=== PATIENT | female | born 1960 | race Caucasian/White ===

== ENCOUNTER 2019-12-31 16:57 | Inpatient (IN) | payer OTHER ==
[~2019-12-31] VITALS: Ht 162.6 cm; Wt 130.2 kg
[2019-12-31 16:58] VITALS: BP 184/91
[2019-12-31 17:37] LABS: URINE BILIRUBIN NEGATIVE (Negative); URINE BLOOD 1+ (Negative); URINE CLARITY SL CLOUDY; URINE COLOR YELLOW; URINE GLUCOSE-RANDOM 3+ (Negative); URINE KETONES NEGATIVE (Negative); URINE LEUKOCYTES-REFLEX NEGATIVE (Negative); URINE NITRITE-REFLEX NEGATIVE (Negative); URINE PROTEIN 3+ (Negative); URINE SPECIFIC GRAVITY >= 1.030 (1.005-1.030); URINE UROBILINOGEN 0.2 E.U./dl (0.2-1.0)
[2019-12-31 17:44] LABS: ABSOLUTE BASOPHILS 0.1 thou/uL (0.0-0.2); ABSOLUTE EOSINOPHILS 0.2 thou/uL (0.0-0.7); ABSOLUTE LYMPHOCYTES 3.5 thou/uL (0.8-5.3); ABSOLUTE MONOCYTES 0.6 thou/uL (0.0-1.2); ABSOLUTE NEUTROPHILS 9.3 thou/uL (1.6-8.1); BASOPHILS 0.7 %; EOSINOPHILS 1.3 %; HEMOGLOBIN 13.3 gm/dL (12.0-15.0); LYMPHOCYTES 25.4 %; MCHC 33.1 g/dL (28.0-37.0); MCV 81.6 fL (80.0-100.0); MONOCYTES 4.7 %; MPV 8.9 fl. (7.2-11.1); NUCLEATED RBCS 0 /100WBC; PLATELET COUNT* 338 thou/uL (150-400); POLYS 67.9 %; RBC 4.91 mil/uL (4.20-5.00); RDW-CV 15.7 % (10.5-14.5); WBC 13.8 thou/uL (4.0-11.0)
[2019-12-31 17:47] LABS: BACTERIA-REFLEX >30 Many /HPF (None Seen); CASTS None Seen /LPF (None Seen); CRYSTALS None Seen /LPF (None Seen); MUCUS 0-3 Light strn/LPF (None Seen); SQUAMOUS 0-3 Few /LPF (0-3); URINE RBC 0-2 Rare /HPF (0-2); URINE WBC-REFLEX >25 Many /HPF (0-5); WBC CLUMPS Moderate (None Seen)
[2019-12-31 17:57] LABS: CALCIUM 9.2 mg/dL (8.5-10.1); CREATININE 1.4 mg/dL (0.6-1.3); POTASSIUM 4.7 mmol/L (3.5-5.1)
[2019-12-31 17:59] LABS: APTT 26.6 Seconds (25.0-31.3); PROTIME 10.1 Seconds (9.20-11.50)
[2019-12-31 18:01] LABS: INFLUENZA A ANTIGEN Negative (Negative); INFLUENZA B ANTIGEN Negative (Negative)
[2019-12-31 18:07] LABS: ALBUMIN 3.2 g/dL (3.4-5.0); TOTAL BILIRUBIN 0.2 mg/dL (<0.1-1.0); TOTAL PROTEIN 8.4 g/dL (6.4-8.2)
[2019-12-31 20:05] VITALS: BP 166/122
[2019-12-31 20:08] VITALS: BP 147/79
[2019-12-31 21:43] LABS: MAGNESIUM 1.8 mg/dL (1.8-2.4); PHOSPHORUS* 4.8 mg/dL (2.5-4.9)
[2019-12-31 23:14] LABS: AMP/METHAMP Negative (Negative); BARBITURATES Negative (Negative); BENZODIAZEPINES Negative (Negative); COCAINE Negative (Negative); METHADONE Negative (Negative); OPIATES Negative (Negative); PCP Negative (Negative); THC Negative (Negative)
[2019-12-31 23:44] VITALS: BP 138/68
[2020-01-01 00:42] LABS: BE -5.6 mmol/L (-2 to +3); PCO2 41.3 mmHg (35.0-45.0)
[2020-01-01 00:48] LABS: PO2 144.1 mmHg (75.0-100.0)
[2020-01-01 04:26] VITALS: BP 129/63
[2020-01-01 04:47] LABS: HEMATOCRIT 35.7 % (37.0-47.0); HEMOGLOBIN 12.1 gm/dL (12.0-15.0); MCH 27.2 pg (26.0-34.0); MCHC 33.9 g/dL (28.0-37.0); MPV 8.2 fl. (7.2-11.1); RBC 4.46 mil/uL (4.20-5.00); RDW-CV 15.4 % (10.5-14.5)
[2020-01-01 05:03] LABS: ALBUMIN 2.7 g/dL (3.4-5.0); CALCIUM 9.3 mg/dL (8.5-10.1); CREATININE 1.6 mg/dL (0.6-1.3); MAGNESIUM 1.8 mg/dL (1.8-2.4); POTASSIUM 5.3 mmol/L (3.5-5.1); TOTAL BILIRUBIN 0.3 mg/dL (<0.1-1.0); TOTAL PROTEIN 7.4 g/dL (6.4-8.2)
[2020-01-01] MEDS ORDERED: NOVOLIN N100 UNIT/3 SUBQ ×2 (05:07→05:26)
[2020-01-01 05:13] LABS: TROPONIN-I LEVEL 22.55 ng/mL (<0.06)
[2020-01-01] MEDS ORDERED: HUMULIN R100 UNIT/1 SUBQ (05:25)
[2020-01-01] MEDS ORDERED: METFORMIN HCL500 M3 PO (05:26)
[2020-01-01] MEDS ORDERED: LISINOPRIL2.5 MG PO (05:27)
[2020-01-01] MEDS ORDERED: SIMVASTATIN80 MG PO (05:27)
[2020-01-01 06:05] LABS: CHOLESTEROL 359 mg/dL (<200); HDL CHOLESTEROL 48 mg/dL (>40); LDL CHOLESTEROL 247 mg/dL (<100); TC:HDL 7.5 Ratio (Not establshd); TRIGLYCERIDE 320 mg/dL (<150); VLDL 64 mg/dL (<40)
[2020-01-01 06:07] LABS: SERUM ASSESSMENT Slight Lipemia
[2020-01-01 08:00] VITALS: BP 112/49
[2020-01-01 11:00] VITALS: BP 120/65
[2020-01-01 15:03] VITALS: BP 123/44
[2020-01-01 17:00] VITALS: BP 112/49
[2020-01-01 20:10] VITALS: BP 108/51
[2020-01-02 00:55] VITALS: BP 112/47
[2020-01-02 03:08] LABS: GLYCOHEMOGLOBIN (HGB A1C) 10.4 % (4.8-5.6)
[2020-01-02 05:30] LABS: HEMATOCRIT 34.6 % (37.0-47.0); HEMOGLOBIN 11.6 gm/dL (12.0-15.0); MCH 26.9 pg (26.0-34.0); MCHC 33.6 g/dL (28.0-37.0); MCV 80.1 fL (80.0-100.0); MPV 8.6 fl. (7.2-11.1); RBC 4.32 mil/uL (4.20-5.00); RDW-CV 15.5 % (10.5-14.5); WBC 15.5 thou/uL (4.0-11.0)
[2020-01-02 05:45] LABS: CREATININE 2.1 mg/dL (0.6-1.3); POTASSIUM 4.9 mmol/L (3.5-5.1)
[2020-01-02 11:30] VITALS: BP 124/55
--- NOTE | 2020-01-02 11:58 | 2DMMODE ---
[place] [address] 2 D/M-MODE ECHOCARDIOGRAM Name: CHARLENECHRISS R Room: [address] IN M.R.#: [id number] Admission: 12/31/19 Attend Phys: Roberto bateman Sa Discharge: Date of : 58 Date of Service: 01/02/20 1157 Report #: [id number] THIS REPORT FOR: cc: Physician not on staff Physician not on staff Deniz Wallace MD [facility] ~ APPROVED REPORT Study performed: 01/02/2020 10:22:52 EXAM: Comprehensive 2D, Doppler, and color-flow Echocardiogram Patient Location: In-Patient Room #: [facility] Status: routine BSA: 2.30 HR: 77 bpm BP: 130/55 mmHg Rhythm: NSR Other Information Study Quality: Fair Indications Dyspnea 2D Dimensions IVSd: 15.14 (7-11mm) LVOT Diam: 21.96 (18-24mm) LVDd: 64.66 mm PWd: 11.90 (7-11mm) Ascending Ao: 33.40 (22-36mm) LVDs: 49.38 (25-40mm) Aortic Root: 31.81 mm Volumes Left Atrial Volume (Systole) LA ESV Index: 25.20 mL/m2 Aortic Valve AoV Peak Jonnie.: 1.77 m/s AO Peak Gr.: 12.56 mmHg LVOT Max P.24 mmHg AO Mean Gr.: 7.89 mmHg LVOT Mean P.61 mmHg LVOT Max V: 0.90 m/s AO V2 VTI: 35.73 cm LVOT Mean V: 0.58 m/s TYLER (VTI): 2.14 cm2 LVOT V1 VTI: 20.20 [place] [address] 2 D/M-MODE ECHOCARDIOGRAM Name: CHRISS CHANG Room: [address] IN M.R.#: [id number] Admission: 12/31/19 Attend Phys: Roberto bateman Sa Discharge: Date of : 58 Date of Service: 01/02/20 1157 Report #: [id number] Mitral Valve E/A Ratio: 1.13 MV Decel. Time: 234.13 ms MV E Max Jonnie.: 1.15 m/s MV PHT: 67.90 ms MVA (PHT): 3.24 cm2 TDI E/Lateral E': 19.17 E/Medial E': 19.17 Medial E' Jonnie.: 0.06 m/s Lateral E' Jonnie.: 0.06 m/s Pulmonary Valve PV Peak Jonnie.: 0.99 m/s PV Peak Gr.: 3.92 mmHg Left Ventricle Left ventricle is moderately dilated. There is global hypokinesis of the left ventricle. Mild concentric left ventricular hypertrophy. Left ventricular systolic function is mildly decreased. LVEF is 30-35%. Right Ventricle The right ventricle is normal size. The right ventricular systolic function is normal. Atria The left atrium size is normal. The right atrium size is normal. Aortic Valve Mild aortic valve sclerosis. No aortic regurgitation is present. There is no aortic valvular stenosis. Mitral Valve There is mitral annular calcification. There is no mitral valve regurgitation noted. No evidence of mitral valve stenosis. Tricuspid Valve The tricuspid valve is normal in structure. There is no tricuspid valve regurgitation noted. Pulmonic Valve The pulmonary valve is normal in structure. There is no pulmonic valvular [place] [address] 2 D/M-MODE ECHOCARDIOGRAM Name: CHRISS CHANG Room: [address] IN .R.#: [id number] Admission: 12/31/19 Attend Phys: Roberto bateman Sa Discharge: Date of : 58 Date of Service: 01/02/20 1157 Report #: [id number] The aortic root is normal in size. IVC is normal in size and collapses >50% with inspiration. Pericardium There is no pericardial effusion. <Conclusion> Left ventricle is moderately dilated. Mild concentric left ventricular hypertrophy. LVEF is 30-35%. Mild aortic valve sclerosis. <ELECTRONICALLY SIGNED> By: Deniz Wallace MD, [facility] 01/02/20 1157 1157 1157 Deniz Wallace MD, [facility] /INF
--- NOTE | 2020-01-02 12:18 | CON ---
[address] [address] CONSULTATION Name: CHARLENECHRISS Cynthia Room: [address] IN M.R.#: [id number] Admission: 12/31/19 Attend Phys: Roberto Magana Discharge: Date of : 58 Report #: [id number] THIS REPORT FOR: //name// cc: Physician not on staff Physician not on staff ~ THIS REPORT FOR: //name// CC: Roberto Shay MD Physician staff DATE OF SERVICE: 01/01/2020 CARDIOLOGY CONSULTATION HISTORY OF PRESENT ILLNESS: The patient is a 59-year-old white female who I was asked to see in the hospital today because of elevated troponin. The patient denies previous history of heart disease. She is not very active at this time. She is 5 feet 4 inches. Previously weighed over 300 pounds. She has had history of PAD with previous stenting of her left lower extremity, both at [facility] and [place]. She eventually underwent left rhuca-jpj-popp amputation at [facility] the [place] in 2017 for a nonhealing ulcer. She currently has a prosthesis. She denies a history of heart disease. She actually saw Dr. Trinh in [place], [place] and had a nuclear stress test in the past that showed no significant coronary artery disease. She has never had a heart catheterization. She denies any history of exertional chest tightness. She notes that a couple of weeks ago, she had sneezing, and cough. She was put on antibiotics and cough syrup. However, recently she has been more short of breath. She finally came to the hospital yesterday and was admitted. She notes that her had the flu 2 weeks ago. She does have occasional chest pain when she takes deep breath, but denies radiating to her arms. Denied any swelling of her feet. Denied any palpitations or syncope. PAST MEDICAL HISTORY: She has had no other major surgical procedures. She has a history of diabetes, hypertension, and hyperlipidemia. MEDICATIONS: Include Zocor, lisinopril, and insulin. ALLERGIES: She has no known drug allergies. FAMILY HISTORY: Her grandmother had a heart attack. SOCIAL HISTORY: She is . She and her live in [place]. She quit smoking years ago. [place] [address] CONSULTATION Name: CHRISS CHANG Room: [address]#: [id number] Admission: 12/31/19 Attend Phys: Roberto Magana Discharge: Date of : 58 Report #: [id number] REVIEW OF SYSTEMS: She has had no history of strokes. She does have sleep apnea. No history of liver disease. She has had a kidney stone. No cancer. No psychiatric illness. No chronic skin condition. PHYSICAL EXAMINATION: GENERAL: Revealed an obese, middle-aged female lying in bed. She appeared in no distress. She did have a BiPAP in place. VITAL SIGNS: Show blood pressure 120/60, pulse is 80, she is afebrile. HEENT: She was anicteric. Conjunctivae are pink. Mucous membranes moist. NECK: Veins difficult to assess due to obesity. CHEST: Clear to auscultation. CARDIOVASCULAR: Regular rate and rhythm. ABDOMEN: Obese. EXTREMITIES: The right lower extremity had no edema. Dorsalis pedis pulse cannot be palpated. SKIN: Cool and dry. NEUROLOGIC: Nonfocal. DIAGNOSTIC DATA: Her ECG on admission yesterday showed a sinus rhythm, left axis and a left bundle branch block, occasional PVCs. Current ECG again shows a sinus rhythm, left axis deviation, evidence of previous anterior infarction. LABORATORY DATA: Sodium 136, potassium 5.3, BUN 36, creatinine 1.6, glucose 321. Liver function studies were normal. Albumin 2.7. Troponin elevated at 22. BNP 2220. Her cholesterol 359, triglyceride 320, HDL 48, LDL 247. Her white blood cell count is 11.0, hemoglobin 12.1. Her influenza screen was negative. Urinalysis 3+ protein, 3+ glucose, negative leukocytes, many bacteria. IMPRESSION AND RECOMMENDATIONS: 1. Type 2 myocardial infarction. I would not recommend cardiac catheterization at this time. I would obtain echocardiogram. I will start aspirin and Plavix. 2. Upper respiratory infection. The patient's chest x-ray on admission showed cardiomegaly, mild vascular congestion, no infiltrates. She actually had a CT scan of the chest using a PE protocol that showed no pulmonary embolus, mild vascular congestion, coronary artery atherosclerosis. Venous duplex scan of the legs was performed today showed no evidence of deep venous thrombosis. 3. Diabetes. The patient is on insulin. 4. Hyperlipidemia. The patient is on an EZEKIEL inhibitor. 5. Hyperlipidemia. The patient is on a statin drug. Because of her high triglycerides, I would consider adding fenofibrate. 6. Obesity. [address] [address] CONSULTATION Name: CHRISS CHANG Room: 231-P [facility] IN M.R.#: [id number] Admission: 12/31/19 Attend Phys: Roberto Magana Discharge: Date of : 58 Report #: [id number] 7. Sleep apnea. 8. Peripheral arterial disease with previous amputation. <ELECTRONICALLY SIGNED> By: Deniz Wallace MD, FACC 01/02/20 1218 0845 [id number] Wallace MD, FACC /nt
[2020-01-02 16:00] VITALS: BP 123/53
[2020-01-02 19:50] VITALS: BP 124/53
[2020-01-03] VITALS: BP 118/49
[2020-01-03 04:00] VITALS: BP 131/53
[2020-01-03 08:00] VITALS: BP 121/56
[2020-01-03 11:14] VITALS: BP 115/51
[2020-01-03 11:19] LABS: HEMATOCRIT 35.2 % (37.0-47.0); HEMOGLOBIN 11.8 gm/dL (12.0-15.0); MCH 26.9 pg (26.0-34.0); MCHC 33.5 g/dL (28.0-37.0); MCV 80.3 fL (80.0-100.0); MPV 8.7 fl. (7.2-11.1); NUCLEATED RBCS 0 /100WBC; PLATELET COUNT* 283 thou/uL (150-400); RBC 4.39 mil/uL (4.20-5.00); RDW-CV 15.2 % (10.5-14.5)
[2020-01-03 11:34] LABS: CALCIUM 8.7 mg/dL (8.5-10.1); CREATININE 2.2 mg/dL (0.6-1.3); POTASSIUM 4.5 mmol/L (3.5-5.1)
[2020-01-03 11:42] LABS: ABSOLUTE LYMPHOCYTES 1.1 thou/uL (0.8-5.3); ABSOLUTE MONOCYTES 0.4 thou/uL (0.0-1.2); ABSOLUTE NEUTROPHILS 10.6 thou/uL (1.6-8.1); ANISOCYTOSIS 1+; PLATELET ESTIMATE ADEQUATE; POIKILOCYTOSIS 1+
[2020-01-03 17:37] VITALS: BP 122/57
[2020-01-03 20:00] VITALS: BP 147/61
[2020-01-04] VITALS: BP 155/54
[2020-01-04 04:18] LABS: HEMATOCRIT 35.6 % (37.0-47.0); HEMOGLOBIN 11.9 gm/dL (12.0-15.0); MCH 26.8 pg (26.0-34.0); MCHC 33.4 g/dL (28.0-37.0); MCV 80.1 fL (80.0-100.0); MPV 8.6 fl. (7.2-11.1); RBC 4.44 mil/uL (4.20-5.00); RDW-CV 15.5 % (10.5-14.5); WBC 11.3 thou/uL (4.0-11.0)
[2020-01-04 04:22] VITALS: BP 139/48
[2020-01-04 04:28] LABS: CALCIUM 8.4 mg/dL (8.5-10.1); MAGNESIUM 2.1 mg/dL (1.8-2.4); POTASSIUM 3.8 mmol/L (3.5-5.1)
[2020-01-04 09:45] VITALS: BP 123/68
[2020-01-04] MEDS ORDERED: PREDNISONE 10 M10 MG PO (11:12)
[2020-01-04] MEDS ORDERED: ASPIR 8181 MG PO (11:12)
[2020-01-04] MEDS ORDERED: PRINIVIL10 MG PO (11:12)
[2020-01-04] MEDS ORDERED: IPRAT-ALBUT 0.5-3 ML INH (11:12)
[2020-01-04] MEDS ORDERED: PULMICORT0.5 MG/2 M INH (11:12)
[2020-01-04] MEDS ORDERED: CARVEDILOL3.125 MG PO (11:12)
[2020-01-04] MEDS ORDERED: CEFDINIR300 MG PO (11:12)
[2020-01-04] MEDS ORDERED: LASIX 40 MG TAB40 M1 PO (11:12)
[2020-01-04] MEDS ORDERED: FENOFIBRATE54 MG PO (11:12)
[2020-01-04] MEDS ORDERED: VALTREX 500 MG500 M1 PO (11:12)
[2020-01-04 12:14] VITALS: BP 110/52
[2020-01-04] MEDS ORDERED: PLAVIX 75 MG TA75 MG PO (13:49)
[2020-01-04] MEDS ORDERED: LIPITOR80 MG PO (13:50)
[2020-01-04 13:51] VITALS: BP 102/57
[2020-01-04] MEDS ORDERED: NITROGLYCERIN0.4 MG SUBLING (13:51)
[2020-01-04 16:09] LABS: ADENOVIRUS Negative (Negative); INFLUENZA A Negative (Negative); INFLUENZA B Negative (Negative); METAPNEUMOVIRUS Negative (Negative); PARAINFLUENZA 1 Negative (Negative); PARAINFLUENZA 2 Negative (Negative); PARAINFLUENZA 3 Negative (Negative); RHINOVIRUS Negative (Negative); RSV A Negative (Negative); RSV B Negative (Negative)
--- NOTE | 2020-01-06 14:59 | EKG ---
[place] [address] ELECTROCARDIOGRAM REPORT Name: CHRISS CHANG Room: [address] IN .R.#: [id number] Admission: 12/31/19 Attend Phys: Roberto bateman Sa Discharge: 01/04/20 Date of : 58 Date of Service: 12/31/19 1705 Report #: [id number] THIS REPORT FOR: //name// [facility] ED Test Date: 2019-12-31 Test Time: 17:05:24 Pat Name: CHRISS CHANG Department: Room: [facility] Gender: F Wood Lather: : 1960 Requested By: Kevin Horn Order Number: [id number] MD: Deniz Wallace Measurements Intervals [place] Rate: 116 P: 82 AR: 153 QRS: -52 QRSD: 128 T: 125 QT: 344 QTc: 478 Interpretive Statements Sinus tachycardia left axis Left bundle branch block No previous ECG available for comparison Electronically Signed On 01-01-2020 11:10:21 EXECUTIVE CONSULTANT by Deniz Wallace [email or web address] <ELECTRONICALLY SIGNED> By: Deniz Wallace MD, FACC 01/01/20 1110 1705 1705 Deniz Wallace MD, FAC /EPI
--- NOTE | 2020-01-06 14:59 | EKG ---
[place] [address] ELECTROCARDIOGRAM REPORT Name: CHRISS CHANG Room: [address] IN M.R.#: [id number] Admission: 12/31/19 Attend Phys: Roberto bateman Sa Discharge: 01/04/20 Date of : 58 Date of Service: 12/31/192036 Report #: [id number] THIS REPORT FOR: //name// [facility] Test Date: 2019-12-31 Test Time: 20:37:36 Pat Name: CHRISS CHANG Department: Room: [address] Gender: F Barrel Racer: TR : 1960 Requested By: Roberto Ayon Order Number: [id number] Kim MD: Deniz Wallace Measurements Intervals [place] Rate: 109 P: 0 HI: 100 QRS: -39 QRSD: 148 T: 115 QT: 389 QTc: 525 Interpretive Statements Sinus tachycardia left axis Left bundle branch block Compared to ECG 12/31/2019 17:05:24 No significant changes Electronically Signed On 01-02-2020 10:22:07 STORE STOCK ASSOCIATE by Deniz Wallace [email or web address] <ELECTRONICALLY SIGNED> By: Deniz Wallace MD, FAC 01/02/20 1022 36 Deniz Wallace MD, [facility] /EPI
--- NOTE | 2020-01-06 14:59 | EKG ---
[place] [address] ELECTROCARDIOGRAM REPORT Name: CHRISS CHANG Room: [address] IN M.R.#: [id number] Admission: 12/31/19 Attend Phys: Roberto bateman Sa Discharge: 01/04/20 Date of : 58 Date of Service: 01/01/20 0634 Report #: [id number] THIS REPORT FOR: //name// [facility] Test Date: 2020-01-01 Test Time: 06:34:17 Pat Name: CHRISS CHANG Department: Room: [address] Gender: F Office Communication Professor: MAURO : 1960 Requested By: Deniz Wallace Order Number: [id number] Kim MD: Deniz Wallace Measurements Intervals [place] Rate: 93 P: 78 [place]: 168 QRS: -50 QRSD: 133 T: 123 QT: 389 QTc: 484 Interpretive Statements Sinus rhythm left axis Left bundle branch block Baseline wander in lead(s) V5 Compared to ECG 12/31/2019 17:05:24 Sinus tachycardia no longer present Electronically Signed On 01-01-2020 12:11:46 HIGH SCHOOL SPECIAL EDUCATION TEACHER by Deniz Wallace [email or web address] <ELECTRONICALLY SIGNED> By: Deniz Wallace MD, [facility] 01/01/20 1211 0634 0634 Deniz Wallace MD, [facility] /EPI
== END 2020-01-04 14:23 | disposition home health service (06) | DRG 871 ==
LOC: M.ERS 16:57 → M.TBA-ER 17:55 → M.2W 17:55
PROVIDERS: Family Medicine; Internal Medicine; Internal Medicine Cardiovascular Disease; ADMIT Family Medicine
PROC: 5A09357 Assistance with Respiratory Ventilation, Less than 24 Consecutive Hours, Continuous Positive Airway Pressure (ICD-10-PCS; principal; 2019-12-31)
PROC: 5A09357 Assistance with Respiratory Ventilation, Less than 24 Consecutive Hours, Continuous Positive Airway Pressure (ICD-10-PCS; 2020-01-01)
PROC: 5A09357 Assistance with Respiratory Ventilation, Less than 24 Consecutive Hours, Continuous Positive Airway Pressure (ICD-10-PCS; 2020-01-02)
PROC: 5A09357 Assistance with Respiratory Ventilation, Less than 24 Consecutive Hours, Continuous Positive Airway Pressure (ICD-10-PCS; 2020-01-03)
DX: A41.89 Other specified sepsis (principal); I21.A1 Myocardial infarction type 2; J96.01 Acute respiratory failure with hypoxia; J15.9 Unspecified bacterial pneumonia; I50.23 Acute on chronic systolic (congestive) heart failure; Z68.42 Body mass index [BMI] 45.0-49.9, adult; I13.0 Hypertensive heart and chronic kidney disease with heart failure and stage 1 through stage 4 chronic kidney disease, or unspecified chronic kidney disease; N17.9 Acute kidney failure, unspecified; J44.1 Chronic obstructive pulmonary disease with (acute) exacerbation; B02.8 Zoster with other complications; L03.90 Cellulitis, unspecified; E66.01 Morbid (severe) obesity due to excess calories; G47.33 Obstructive sleep apnea (adult) (pediatric); E11.65 Type 2 diabetes mellitus with hyperglycemia; E78.5 Hyperlipidemia, unspecified; E11.22 Type 2 diabetes mellitus with diabetic chronic kidney disease; N18.3 Chronic kidney disease, stage 3 (moderate); E11.51 Type 2 diabetes mellitus with diabetic peripheral angiopathy without gangrene; I25.10 Atherosclerotic heart disease of native coronary artery without angina pectoris; R82.81 Pyuria; Z82.49 Family history of ischemic heart disease and other diseases of the circulatory system; Z79.84 Long term (current) use of oral hypoglycemic drugs; Z79.4 Long term (current) use of insulin; Z79.899 Other long term (current) drug therapy; Z99.81 Dependence on supplemental oxygen; Z87.01 Personal history of pneumonia (recurrent); Z87.891 Personal history of nicotine dependence; Z89.612 Acquired absence of left leg above knee; Z28.21 Immunization not carried out because of patient refusal

== ENCOUNTER 2020-05-13 21:56 | Inpatient (IN) | payer OTHER ==
[~2020-05-13] VITALS: Ht 162.6 cm; Wt 142.4 kg
[~2020-05-13 21:56] MED LIST: ASPIR 8181 MG PO; CARVEDILOL3.125 MG PO; CEFDINIR300 MG PO; FENOFIBRATE54 MG PO; HUMULIN R100 UNIT/1 SUBQ; IPRAT-ALBUT 0.5-3 ML INH; LASIX 40 MG TAB40 M1 PO; LIPITOR80 MG PO; LISINOPRIL2.5 MG PO; METFORMIN HCL500 M3 PO; NITROGLYCERIN0.4 MG SUBLING; NOVOLIN N100 UNIT/3 SUBQ; PLAVIX 75 MG TA75 MG PO; PREDNISONE 10 M10 MG PO; PRINIVIL10 MG PO; PULMICORT0.5 MG/2 M INH; SIMVASTATIN80 MG PO; VALTREX 500 MG500 M1 PO
[2020-05-13 21:59] VITALS: BP 122/67
[2020-05-13 22:33] LABS: ABSOLUTE BASOPHILS 0.1 thou/uL (0.0-0.2); ABSOLUTE LYMPHOCYTES 0.9 thou/uL (0.8-5.3); ABSOLUTE MONOCYTES 0.7 thou/uL (0.0-1.2); ABSOLUTE NEUTROPHILS 7.9 thou/uL (1.6-8.1); BASOPHILS 0.8 %; EOSINOPHILS 0.2 %; HEMATOCRIT 36.1 % (37.0-47.0); HEMOGLOBIN 11.4 gm/dL (12.0-15.0); LYMPHOCYTES 9.6 %; MCH 25.6 pg (26.0-34.0); MCHC 31.5 g/dL (28.0-37.0); MCV 81.2 fL (80.0-100.0); MONOCYTES 6.9 %; MPV 8.9 fl. (7.2-11.1); NUCLEATED RBCS 0 /100WBC; PLATELET COUNT* 325 thou/uL (150-400); POLYS 82.5 %; RBC 4.44 mil/uL (4.20-5.00); RDW-CV 19.7 % (10.5-14.5); WBC 9.6 thou/uL (4.0-11.0)
[2020-05-13 22:45] LABS: INR 1.2; PROTIME 12.6 Seconds (9.20-11.50)
[2020-05-13 22:52] LABS: ANION GAP 10 mmol/L (7-16); BUN 70 mg/dL (7-18); CALCIUM 8.7 mg/dL (8.5-10.1); CHLORIDE 95 mmol/L (98-107); CO2 26 mmol/L (21-32); CREATININE 1.7 mg/dL (0.6-1.3); POTASSIUM 5.1 mmol/L (3.5-5.1); SODIUM 131 mmol/L (136-145)
[2020-05-13 22:54] LABS: GLUCOSE 595 mg/dL (70-99)
[2020-05-13 22:58] LABS: ALBUMIN 2.8 g/dL (3.4-5.0); ALKALINE PHOSPHATASE 394 U/L (46-116); LIPASE 306 U/L (73-393); NT-PRO BRAIN NAT PEPTIDE > 35000 pg/mL (<300); SGOT 25 U/L (15-37); SGPT 31 U/L (30-65); TOTAL PROTEIN 7.3 g/dL (6.4-8.2)
[2020-05-13 23:25] LABS: BE -2.8 mmol/L (-2 to +3); PCO2 42.4 mmHg (35.0-45.0); PO2 114.8 mmHg (75.0-100.0); pH 7.347 (7.340-7.450)
[2020-05-14] VITALS (58 sets, daily range): BP systolic 52–123; BP diastolic 28–83
[2020-05-14 00:14] LABS: URINE BILIRUBIN NEGATIVE (Negative); URINE BLOOD 1+ (Negative); URINE COLOR YELLOW; URINE GLUCOSE-RANDOM 3+ (Negative); URINE KETONES NEGATIVE (Negative); URINE LEUKOCYTES-REFLEX 1+ (Negative); URINE NITRITE-REFLEX POSITIVE (Negative); URINE PROTEIN 2+ (Negative); URINE UROBILINOGEN 0.2 E.U./dl (0.2-1.0)
[2020-05-14 00:15] LABS: URINE CLARITY SL CLOUDY
[2020-05-14 00:25] LABS: SQUAMOUS 0-3 Few /LPF (0-3); URINE WBC-REFLEX >25 Many /HPF (0-5); WBC CLUMPS Moderate (None Seen)
[2020-05-14 00:26] LABS: BACTERIA-REFLEX >30 Many /HPF (None Seen); CASTS None Seen /LPF (None Seen); CRYSTALS None Seen /LPF (None Seen); MUCUS 0-3 Light strn/LPF (None Seen)
--- NOTE | 2020-05-14 07:53 | NUR ---
PATIENT REPORT RECEIVED FROM MONET. PATIENT BROUGHT TO UNIT AT 0237. PATIENT ORIENTED TO UNIT, ROOM, BED, CALL-LIGHT, AND HOSPITAL POLICY. ASSESSMENTS COMPLETED CHARTED. CARDIAC MONITORING IN PLACE. FALL PRECAUTIONS IN PLACE FOR PATIENT SAFETY. BED LOCKED AND IN LOWEST POSITION. PATIENT STATED THAT SHE HAD PAIN IN HER BACK AND LEGS, PHYSICIAN NOTIFIED, NEW ORDERS RECEIVED, SEE EMAR FOR DETAILS. PATIENT HAS MULTIPLE WOUNDS ON HER LEFT LEG, LEFT, FOOT, LEFT THIGH, RIGHT LEG, RIGHT BKA SITE, ACROSS HER ABDOMEN AND TORSO, ON HER COCCYX, ON HER LEFT AND RIGHT BUTTOCKS, AND AROUND HER UPPER CHEST. PICTURES TAKEN OF WOUNDS, SEE CHART.
[2020-05-14 08:27] LABS: CALCIUM 8.3 mg/dL (8.5-10.1); CREATININE 1.6 mg/dL (0.6-1.3); MAGNESIUM 1.9 mg/dL (1.8-2.4); POTASSIUM 4.2 mmol/L (3.5-5.1)
--- NOTE | 2020-05-14 10:08 | EKG ---
[place] [address] ELECTROCARDIOGRAM REPORT Name: CHRISS CHANG Room: [address] ADM IN .R.#: [id number] Admission: 05/14/20 Attend Phys: Roberto bateman Sa Discharge: Date of : 58 Date of Service: 05/13/20 2231 Report #: [id number] THIS REPORT FOR: //name// [facility] ED Test Date: 2020-05-13 Test Time: 22:31:34 Pat Name: CHRISS CHANG Department: Room: [facility] Gender: F Information Security Systems Instructor: DARIANA : 1960 Requested By: Apple Phillips Order Number: [id number] MD: Deniz Wallace Measurements Intervals [place] Rate: 90 P: 49 [place]: 151 QRS: -52 QRSD: 148 T: 129 QT: 408 QTc: 500 Interpretive Statements Sinus rhythm Left bundle branch block Compared to ECG 01/01/2020 06:34:17 No significant changes Electronically Signed On 05-14-2020 10:08:07 CDT by Deniz Wallace [email or web address] <ELECTRONICALLY SIGNED> By: Deniz Wallace MD, FAC 05/14/20 1008 30 30 Deniz Wallace MD, [facility] /EPI
--- NOTE | 2020-05-14 10:44 | CON ---
[address] [address] CONSULTATION Name: CHRISS CHANG Room: [address] IN M.R.#: [id number] Admission: 05/14/20 Attend Phys: Roberto Magana Discharge: Date of : 58 Report #: [id number] THIS REPORT FOR: //name// cc: Noble Little MD, Samuel D. MD ~ THIS REPORT FOR: //name// CC: Roberto Sofia DATE OF SERVICE: 05/14/2020 INFECTIOUS DISEASE CONSULTATION ATTENDING PHYSICIAN: Roberto Cabral MD REASON FOR EVALUATION: Multiple wounds associated with inflammatory eruption, skin and soft tissue infection, also has a complicated urinary tract infection. The patient with uncontrolled diabetes mellitus. HISTORY OF PRESENT ILLNESS: Chart reviewed, the patient examined. This is a 60-year-old woman with diabetes mellitus, apparently uncontrolled, also has obesity, obstructive sleep apnea, difficult to arouse her at this point. I am not sure of the accuracy of her responses, but apparently she has had wounds, some of which appeared to be pressure related, others not. She would expect pressure associated wounds over the good portion of her body. She describes it as painful. It is not clear that she has had fevers. She was admitted due to markedly elevated blood sugars, felt to be dyspneic, although her sats were adequate on 2 liters. She did have evidence of marked pyuria as well. She had [facility], although she does not give the details other than it has "not been working." She is empirically started on therapy with vancomycin and ceftriaxone. Blood cultures are pending. Did have a urine culture, apparently wound culture as well. At present, she is afebrile. Her vital signs are relatively stable, making reasonable urine output. ALLERGIES: None known. MEDICATIONS: Currently include vancomycin, tramadol, insulin, had been given a dose of ceftriaxone as well. PAST MEDICAL HISTORY: Diabetes mellitus, suspect insulin requiring, history of hypertension, hyperlipidemia, previous left hrjuf-[id number]-[id number] amputation, peripheral vascular disease, known vasculopathy, coronary artery disease, obstructive sleep apnea, on CPAP, [place] [address] CONSULTATION Name: CHRISS CHANG Room: [address] IN [facility].#: [id number] Admission: 05/14/20 Attend Phys: Roberto Magana Discharge: Date of : 58 Report #: [id number] SOCIAL HISTORY: Disabled, former smoker. No ethanol. No illicit drug use. FAMILY HISTORY: Noncontributory. REVIEW OF SYSTEMS: Not reliably obtained. PHYSICAL EXAMINATION: GENERAL: She appears chronically ill, undernourished. She is quite somnolent, difficult to arouse. VITAL SIGNS: Temperature 98.8, pulse 83, respirations 23, blood pressure 118/71. SKIN: Warm, dry. Skin has got extensive ulcerations; there are 19 pages of pictures in the chart. These involve posterior perineal area, also anterior torso, lower extremities including the stump and distally as well, some of which are excoriated superficial ulcers, has a moderate degree of inflammation associated with several of them. No apparent necrotizing process at this point. LUNGS: Diminished breath sounds. HEART: Regular. I do not appreciate a murmur. ABDOMEN: Obese, soft. There is some tenderness, although I do not believe it is intraabdominal. No peritoneal signs. GENITOURINARY AND RECTAL: Deferred. LABORATORY DATA: Prealbumin of 10.8. Most recent glucose 334. Lactic acid 2.3. Troponin elevated at 0.16. COVID test was negative. Urinalysis showed greater than 25 white cells, greater than 30 bacteria. ABGs on 2 liters; pH 7.347, pCO2 of 42.4, pO2 114.8. Electrolytes; sodium 131, potassium 5.1, chloride 95, bicarbonate 26, anion gap of 10, BUN and creatinine 70 and 1.7. Glucose as a spot check was 595. Liver functions unremarkable except alkaline phosphatase elevated at 394. Albumin of 2.8, total protein 7.3, estimated GFR of 31. Chest x-ray showed bibasilar atelectasis and small bilateral pleural effusions. CBC; white count of 9.6, H and H of 11.4 and 36.1, platelets of 325. ASSESSMENT: 1. Extensive inflammatory eruption with multiple superficial ulcers involving multiple sites, some of which I think are likely secondarily infected. We will continue broad-spectrum antimicrobial therapy, wound care as prescribed. I would consider a skin biopsy at this point. It is difficult to ascertain the duration of these. There may be various stages, but this may be more systemic issue complicated by dermatological manifestations. 2. Complicated urinary tract infection. Again broad-spectrum therapy should give us coverage. We will await urine and blood culture results. 3. Likely has a component of pneumonitis as well. Continue to monitor expectantly. We will add some incentive spirometry, oxygen [place] [address] CONSULTATION Name: CHRISS CHANG Room: 006-P ADM IN M.R.#: [id number] Admission: 05/14/20 Attend Phys: Roberto bateman Dupree Discharge: Date of : 58 Report #: [id number] and increase activity as able. Overall, she is quite compromised and in a tenuous situation. We will continue to monitor expectantly, supportive care. <ELECTRONICALLY SIGNED> By: Sanju Landers MD 05/14/20 1044 0730 [id number] Landers MD /nt
--- NOTE | 2020-05-14 14:53 | NUR ---
ICU rounds: BS 595, non compliant. Left BKA. 13 wounds on body, pictures taken. IVABX. Vascular and podiatry consults pending. ? need for surgery consult. Possible need for right BKA. PT/OT ordered. CM spoke briefly with Pt's , he was on his way to work. Pt resides at home with . provides all of Pt's cares. Pt has a wc. works overnights, when he gets off he assists Pt with getting up and cleaned up, does the best that he can, but wants to see if Pt can go to skilled at [facility]. Pt has been getting weaker the past few weeks. Following.
--- NOTE | 2020-05-14 15:09 | NUR ---
WOUND NURSE: PATIENT SEEN FOR INTEGUMENTARY ASSESSMENT PERTAINING TO MULTIPLE WOUNDS, TOO NUMBEROUS TO COUNT. PATIENT WITH BLACKENED ESCHARS ON RIGHT FOOT, FOOT WITH RUBOR AND IS COLD TO TOUCH AND CAPILLARY REFILL IS 7 SECONDS. THERE IS LARGE AMOUNT OF YELLOW DRAINAGE NOTED FROM RIGHT LOWER LEG WOUNDS AND PRESENTS WITH SHALLOW EROSIONS. PLAN FOR BETADINE SWAB TO ALL SCABS. LEFT BKA WITH WOUNDS AND RED ERODED RASH AND MODERATE AMOUNT OF YELLOW DRAINAGE. WILL PLAN FOR XEROFORM GAUZE UNDER ABD UNDER KERLEX ROLL GAUZE. LARGE EROSION ON THE LEFT BKA AND WIILL PLAN FOR AQUACEL AG UNDER ABD UNDER KERLEX AND SECURE WITH TAPE,. UNABLE TO ASSESS BUTTOCK AND COCCYX WOUND PATIENT RECEIVING DOPPLER AND CAN'T BE MOVED FOR NOW. BASED ON PHOTOS OF LT BUTTOCK WILL PLAN FOR AQUACEL AG UNDER EXUDERM UNDER TRANSPARENT DRESSING. RASH AND EROSIONS UNDER BREASTS AND ABDOMINAL FOLDS WILL PLAN TO USE INTERDRY TO THESE AREAS.
--- NOTE | 2020-05-14 16:54 | 2DMMODE ---
[place] [address] 2 D/M-MODE ECHOCARDIOGRAM Name: CHARLENECHRISS Cynthia Room: [facility] IN .R.#: [id number] Admission: 05/14/20 Attend Phys: Roberto bateman Sa Discharge: Date of : 58 Date of Service: 05/14/20 1653 Report #: [id number] THIS REPORT FOR: cc: Noble Little MD, Samuel D. MD Blick, David R. MD [facility] ~ APPROVED REPORT Study performed: 05/14/2020 16:05:26 EXAM: Comprehensive 2D, Doppler, and color-flow Echocardiogram Patient Location: In-Patient Room #: 006 Status: routine BSA: 2.30 HR: 68 bpm BP: 91/61 mmHg Rhythm: NSR Other Information Study Quality: Fair Indications Dyspnea 2D Dimensions IVSd: 14.45 (7-11mm) LVOT Diam: 21.09 (18-24mm) LVDd: 58.83 mm PWd: 12.00 (7-11mm) Ascending Ao: 32.45 (22-36mm) LVDs: 53.82 (25-40mm) Aortic Root: 30.55 mm Volumes Left Atrial Volume (Systole) LA ESV Index: 34.80 mL/m2 Aortic Valve AoV Peak Jonnie.: 1.63 m/s AO Peak Gr.: 10.57 mmHg LVOT Max P.87 mmHg AO Mean Gr.: 6.42 mmHg LVOT Mean P.98 mmHg LVOT Max V: 0.68 m/s AO V2 VTI: 36.91 cm LVOT Mean V: 0.46 m/s TYLER (VTI): 1.49 cm2 LVOT V1 VTI: 15.77 [place] [address] 2 D/M-MODE ECHOCARDIOGRAM Name: CHRISS CHANG Room: [address] IN .R.#: [id number] Admission: 05/14/20 Attend Phys: Roberto bateman Sa Discharge: Date of : 58 Date of Service: 05/14/20 1653 Report #: [id number] Mitral Valve E/A Ratio: 1.37 MV Decel. Time: 213.41 ms MV E Max Jonnie.: 0.94 m/s MV PHT: 61.89 ms MVA (PHT): 3.55 cm2 TDI E/Lateral E': 18.80 E/Medial E': 18.80 Medial E' Jonnie.: 0.05 m/s Lateral E' Jonnie.: 0.05 m/s Pulmonary Valve PV Peak Jonnie.: 0.62 m/s PV Peak Gr.: 1.55 mmHg Tricuspid Valve RAP Estimate: 5.00 mmHg TR Peak Gr.: 19.15 mmHg RVSP: 24.00 mmHg PA Pressure: 24.00 mmHg Left Ventricle Left ventricle is mildly dilated. There is global hypokinesis of the left ventricle. Mild concentric left ventricular hypertrophy. Left ventricular ejection fraction is severely decreased. LVEF is 20-25%. Right Ventricle The right ventricle is normal size. The right ventricular systolic function is normal. Atria Left atrium is mildly dilated. The right atrium size is normal. Aortic Valve Moderate aortic valve sclerosis. No aortic regurgitation is present. There is no aortic valvular stenosis. Mitral Valve There is mitral annular calcification. The mitral valve is normal in structure. There is no mitral valve regurgitation noted. No evidence of mitral valve stenosis. Tricuspid Valve The tricuspid valve is normal in structure. Mild tricuspid regurgitation. [place] [address] 2 D/M-MODE ECHOCARDIOGRAM Name: CHRISS CHANG Room: [address] IN [facility]#: [id number] Admission: 05/14/20 Attend Phys: Roberto bateman Sa Discharge: Date of : 58 Date of Service: 05/14/20 1653 Report #: [id number] Pulmonic Valve The pulmonary valve is normal in structure. Trace pulmonic regurgitation. Great Vessels The aortic root is normal in size. IVC is normal in size and collapses >50% with inspiration. Pericardium There is no pericardial effusion. <Conclusion> LVEF is 20-25%. Left atrium is mildly dilated. Moderate aortic valve sclerosis. <ELECTRONICALLY SIGNED> By: Deniz Wallace MD, [facility] 05/14/201652 52 52 Deniz Wallace MD, FACC /INF
--- NOTE | 2020-05-14 21:02 | NUR ---
I ASSUMED CARE OF THE PATIENT AT 0700. SHE IS ALERT AND ORIENTED X4 AND IS ON BED REST. SHE IS TURNED EVERY TWO HOURS. BED IS IN THE LOW LOCKED POSITION AND CALL LIGHT IS IN REACH. PAIN IS MANAGED WITH PRN MEDS. HOURLY ROUNDING IS COMPLETED AND PATIENT NEEDS ARE MET. CONSULTS ALL CAME AND NEW ORDERS WERE OBTAINED. MRSA SWAB WAS SENT AND AN ISOLATION CART WAS OBTAINED. XRAY OF RIGHT FOOT COMPLETED AND WOUND CARE WROTE ORDERS. CENTRAL LINE WAS PLACED AFTER PRESSURE DROPPED AND LEVO WAS STARTED. SUGAR WAS MONITORED HOURLY AND INSULIN DRIP WAS TITRATED PER PROTOCOL. SPECIALTY BED WAS ORDERED AND SHE WAS TRANFERED OVER. ALL DRESSING SUPPLIES HAVE BEEN GATHERED. SEPSIS FLUID BOLUS WAS GIVEN. WILL CONTINUE TO MONITOR.
--- NOTE | 2020-05-14 22:00 | NUR ---
CALL RECEIVED FROM PT , REPORTS PT HAD CATH 2 WEEKS AGO WHICH HAD TO BE ABORTED R/T SEVERE BLOCKAGE. STATES PT SAW HER ASSET MANAGEMENT COORDINATOR (DR. AVTAR VELEZ) LAST WEEK AND WAS TOLD PT WOULD LIKELY REQUIRE TRIPLE CABG. PT WAS REFERRED TO THORASIC SURGEON ( COULD NOT REMEMBER NAME) WHO INFORMED PT THAT SHE WAS TOO HIGH RISK AND CABG WAS NOT AN OPTION. PT WAS SUPPOSED TO RETURN TO SEE DR VELEZ TODAY TO DISCUSS NEXT STEPS IN CARDIAC CARE IN LIGHT OF NON-CANDIDACY FOR SURGERY.
[2020-05-15] VITALS (56 sets, daily range): BP systolic 72–145; BP diastolic 17–89
[2020-05-15 02:09] LABS: GLYCOHEMOGLOBIN (HGB A1C) 12.7 % (4.8-5.6)
[2020-05-15 05:33] LABS: HEMATOCRIT 33.6 % (37.0-47.0); HEMOGLOBIN 10.6 gm/dL (12.0-15.0); MCHC 31.4 g/dL (28.0-37.0); MCV 79.7 fL (80.0-100.0); MPV 8.2 fl. (7.2-11.1); RBC 4.22 mil/uL (4.20-5.00); RDW-CV 19.8 % (10.5-14.5); WBC 9.6 thou/uL (4.0-11.0)
[2020-05-15 05:54] LABS: ALBUMIN 2.4 g/dL (3.4-5.0); CREATININE 1.7 mg/dL (0.6-1.3); MAGNESIUM 1.9 mg/dL (1.8-2.4); TOTAL BILIRUBIN 0.8 mg/dL (<0.1-1.0); TOTAL PROTEIN 6.7 g/dL (6.4-8.2)
[2020-05-15 05:56] LABS: POTASSIUM 5.3 mmol/L (3.5-5.1)
--- NOTE | 2020-05-15 06:35 | NUR ---
ASSUMED PATIENT CARE AT 1900. ASSESSMENTS COMPLETED CHARTED. CARDIAC MONITORING IN PLACE. PATIENT IN SPECIALTY BED AND TURNED Q2 FOR COMFORT AND SKIN INTEGRITY. MULTIPLE WOUNDS CLEANED WITH DRESINGS APPLIED, SEE CHART FOR DETAILS. BED LOCKED AND IN LOWEST POSITION. FALL PRECAUTIONS IN PLACE FOR PATIENT SAFETY. CLWR.
--- NOTE | 2020-05-15 16:00 | NUR ---
PT.REMAINS ON LEVO. NURSING SAID PT.REPORTS FEELING SOME BETTER TODAY. HAS MULTIPLE WOUNDS ON BODY. WOUND CARE NURSE IS FOLLOWING.
[2020-05-16] VITALS (58 sets, daily range): BP systolic 79–150; BP diastolic 33–77
[2020-05-16 06:08] LABS: HEMATOCRIT 30.9 % (37.0-47.0); MCH 25.4 pg (26.0-34.0); MCHC 32.4 g/dL (28.0-37.0); MCV 78.5 fL (80.0-100.0); MPV 8.3 fl. (7.2-11.1); RBC 3.94 mil/uL (4.20-5.00); RDW-CV 19.9 % (10.5-14.5); WBC 8.8 thou/uL (4.0-11.0)
[2020-05-16 06:22] LABS: ALBUMIN 2.3 g/dL (3.4-5.0); CREATININE 1.8 mg/dL (0.6-1.3); MAGNESIUM 1.8 mg/dL (1.8-2.4); POTASSIUM 5.2 mmol/L (3.5-5.1); TOTAL BILIRUBIN 0.6 mg/dL (<0.1-1.0); TOTAL PROTEIN 6.4 g/dL (6.4-8.2)
--- NOTE | 2020-05-16 06:55 | NUR ---
ASSUMED PATIENT CARE AT 1900. ASSESSMENTS COMPLETED CHARTED. CARDIAC MONITORING IN PLACE. Q2 TURNS FOR SKIN INTEGRITY AND COMFORT. BED LOCKED AND IN LOWEST POSITION. FALL PRECAUTIONS IN PLACE. WOUND DRESSINGS CHANGED ON LEFT BKA, RIGHT FOOT, AND RIGHT LEG. CLWR.
--- NOTE | 2020-05-16 15:31 | NUR ---
ICU rounds: CR elevated. On levo gtt. U/s of wounds on legs pending. Hypoglycemic. Therapies seeing, recommending skilled at dc. Cm left VM for Pt's regarding SNF choice. Awaiting call back.
--- NOTE | 2020-05-16 18:24 | NUR ---
PT IS A/O, REMAINS ON 3L O2 NC.PT REMAINS ON LEVOPHED PER TITRATION PROTOCOL.PT HAD HYPOGLCEMIC EPISODE THIS AM WITH DEXTROSE GIVEN PER PROTOCOL. CTA CANCELLED DUE TO GFR OF 29 AND CREATININE OF 1.8.CARB CONTROL DIET RESUMED AND TOLERATED.US OF BLE COMPLETED.COMPLETE BATH GIVEN WITH WOUND CARE.PT REMOVED FROM ISOLATION-DISCUSSED WITH NANCY FROM INFECTION CONTROL. JOSE ALEJANDRO VISITED AT BEDSIDE.CALL LIGHT AND FALL PRECAUTIONS IN PLACE.WILL CONTINUE TO MONITOR FOR DURATION OF SHIFT.
[2020-05-17] VITALS (81 sets, daily range): BP systolic 81–192; BP diastolic 34–131
--- NOTE | 2020-05-17 04:39 | NUR ---
ASSUMED CARE AT 1920H, 0N NC AT 3LPM AND TOLERATED. SEEN ON BED ORIENTED WITH FLAT AFFECT AT TIMES. ON LEVO AT 5MICS AND TITRATED. NO DISTRESS. ACCORDING TO PT, SHE USES CPAP AT HOME. INFORMED TO BRING PT'S CPAP MACHINE. SOMETIMES, PT SHOWING ATTENTION SEEKING BEHAVIOR. LEVO NOW AT 2MICS. CONTINUE MONITORING AND TOWARD GOALS.
[2020-05-17 05:20] LABS: HEMATOCRIT 30.2 % (37.0-47.0); HEMOGLOBIN 9.7 gm/dL (12.0-15.0); MCH 25.2 pg (26.0-34.0); MCHC 32.1 g/dL (28.0-37.0); MCV 78.6 fL (80.0-100.0); MPV 8.1 fl. (7.2-11.1); RBC 3.84 mil/uL (4.20-5.00); RDW-CV 19.4 % (10.5-14.5); WBC 9.1 thou/uL (4.0-11.0)
[2020-05-17 05:39] LABS: CALCIUM 8.3 mg/dL (8.5-10.1); CREATININE 1.5 mg/dL (0.6-1.3); POTASSIUM 5.1 mmol/L (3.5-5.1)
--- NOTE | 2020-05-17 14:27 | NUR ---
WOUND NURSE: VERIFIED WITH STAFF NURSE THAT PATIENT HAS ADEQUATE WOUND CARE SUPPLIES.
--- NOTE | 2020-05-17 15:21 | NUR ---
ICU rounds: IVABX. Levo gtt. Treating wounds. PT/OT seeing. CM spoke with Pt's , continues to want Pt to go to skilled at dc, CM to fax referrals to [facility] and [facility]. Per Pt is actually current with [facility] for PT/OT and nurse for wound care. Pt has a prosthesis that does not currently fit. feels that Pt is "giving up and depressed" post a conversation with cardiology informing her that she needs a triple bypass but not being medically stable enough to tolerate the surgery. CM following.
--- NOTE | 2020-05-17 17:10 | NUR ---
PT A/O,REMAINS ON 2L O2 NC,VSS.ABLE TO TITRATE OFF LEVOPHED THIS SHIFT.BATH GIVEN WITH WOUND CARE.PT C/O CONSTIPATION-PHYSICIAN NOTIFIED WITH NEW ORDERS RECEIVED. JOSE ALEJANDRO VISITED AT [facility].PLANS FOR SISTER ROD RUVALCABA TO BE DESIGNATED VISITOR TOMORROW 05/18/20.PAIN MANAGED WELL WITH MEDICATIONS.WILL CONTINUE TO MONITOR FOR DURATION OF SHIFT.
--- NOTE | 2020-05-17 19:00 | NUR ---
RECEIVED REPORT FROM RYAN WALLS AND ASSUMED PT CARE
[2020-05-18] VITALS (38 sets, daily range): BP systolic 84–176; BP diastolic 55–98
--- NOTE | 2020-05-18 06:42 | NUR ---
SHIFT SUMMARY: PT SLEPT MOST OF THE SHIFT. VITAL SIGNS STABLE AND WITHIN NORMAL LIMITS. PT DID NOT REQUIRE RESTART OF LEVOPHED. KEPT HER HOME CPAP ON MOST OF THE NIGHT WITH 2L NC O2. PATIENTS RIGHT FOOT DRESSING CHANGED LATE IN THE SHIFT FOR BLOOD SATURATION FROM DORSAL INCISION ADDRESSED BY PHYSICIAN YESTERDAY. URINE OUTPUT PER BORRERO DK FRANSICO. NO STOOLS. RESTING COMFORTABLY
--- NOTE | 2020-05-18 16:09 | NUR ---
ICU rounds: Pt on IVABX. Daily dressing changes. Per nurse, sister is concerned about Pt returning home, plan is for Pt to go to skilled, referrals sent, awaiting decisions to accept. Pt to continue to work with therapies. Pt is M/S status.
--- NOTE | 2020-05-18 17:02 | NUR ---
PT RESTING IN BED THROUGHOUT SHIFT. PT DANGLED ON SIDE OF BED WITH THERAPY. LOW BP WHEN SITTING BUT ASYMPTOMATIC AND RECOVERS QUICKLY. DIGITALLY DISIMPACTED THIS AM AFTER RECEIVING ENEMAS. PT WITH POOR APPETITE. VARIOUS CRUSTED AREAS TO ABD WHICH PT PICKS AT DESPITE BEIN INSTRUCTED NOT TO. PAIN CONTROLLED. IV ABX GIVEN ORDERED. BORRERO CATH DRAINING CLEAR YELLOW URINE.NSR ON MONITOR. BP WNL FAMILY UPDATED ON PLAN OF CARE.
--- NOTE | 2020-05-18 19:00 | NUR ---
REPORT RECEIVED FROM DAY RN. PT RESTING COMFORTBLY IN BED, DENIES PAIN OR ISSUES. PERITONEAL DIALYSIS CURRENTLY RUNNING ON PT WITHOUT DIFFICULTY
--- NOTE | 2020-05-18 20:56 | NUR ---
PATIENT TRANSFERRED TO 106 IN BED IN STABLE CONDITION ACCOMPANIED BY HER FLOOR NURSE AND AIDE FOLLOWING REPORT
--- NOTE | 2020-05-18 21:17 | NUR ---
PT REFUSES TO TAKE HEPARIN. EXPLAINED THE RISKS, ESPECIALLY RELATED TO HER PERITONEAL CATHETER. SHE REFUSES. SHE ALMOST REFUSED SS INSULIN BUT LET ME GIVE IT WITH HESITATION. HER AFFECT IS SULLEN AND FLAT. SHE DOES NOT WANT TO INTERACT WITH STAFF OR BE BOTHERED WITH HER CARES. WILL CONT TO MONITOR CLOSELY AND ENCOURGE INVOLVEMENT
--- NOTE | 2020-05-19 05:11 | NUR ---
PATIENT SLEPT ALL SHIFT. SHE DID NOT REQUEST FURTHER PAIN MEDICATION AFTER A 2100 DOSE OF OXYCODONE. UP AD CEZAR, ROOM AIR, ALERT AND ORIENTED. HAS BEEN NPO WITH THE EXCEPTION OF SOME ICE CHIPS BEFORE BED. SHE REPORTED BLOOD IN URINE VERY SLIGHT. PLAN TO WATCH LABS. WILL CONTINUE TO FOLLOW PLAN OF CARE.
--- NOTE | 2020-05-19 05:42 | NUR ---
TRANSFER FROM ICU LAST NIGHT. MAX ASSIST, Q2 TURN, BORRERO IN PLACE. PT CONCERNED ABOUT HAVING A BM, NURSE REPORTS SHE HAD ONE ON 05/18. PT DID NOT REPORT ANY PAIN OR NAUSEA. SHE IS TOLERATING FLUIDS WELL AND DID NOT REQUEST ANY ADDITIONAL PAIN MEDICATION. KEPT HER RIGHT LEG ELEVATED FOR COMFORT. DRESSING ON RIGHT FOOT IS C/D/I. PT IS ALERT AND ORIENTED. 2L O2, REFUSED CPAP AT NIGHT. WILL CONTINUE TO MONITOR.
[2020-05-19 07:30] VITALS: BP 171/67
[2020-05-19 15:46] VITALS: BP 107/50
--- NOTE | 2020-05-19 16:24 | NUR ---
PATIENT COMPLAINING OF RECTUM PAIN THIS SHIFT, PATIENT CHECKED FREQUENTLY FOR INCONTINENCE OF STOOL. PATIENT WAS GIVEN ENEMA THIS SHIFT ORDERED, PATIENT DID HAVE MULT EPISODES OF SMALL SOFT STOOL AND LIQUID. BARRIER CREAM APPLIED TO COCCYX. DR. BURTON REQUESTING PATIENT TO BE UP IN CHAIR DURING THE DAY, PATIENT UNABLE TO TOLERATE SITTING ON HER BOTTOM AT THIS TIME. WOUND DRESSINGS TO BUTTOCKS CHANGED PER PROTOCOL AND PHOTOS TAKEN. DR. ALDANA HERE AND DRESSING CHANGED TO RIGHT FOOT. PRN TRAMADOL GIVEN FOR PAIN ORDERED BUT PATIENT ONLY ABLE TO REST QUIETLY FOR A SHORT TIME. LEFT SUBCLAVIAN IV SL, SCHED ABX GIVEN ORDERED.
[2020-05-19 20:17] VITALS: BP 102/72
[2020-05-20 04:36] LABS: CALCIUM 8.9 mg/dL (8.5-10.1); CREATININE 1.6 mg/dL (0.6-1.3); MAGNESIUM 2.4 mg/dL (1.8-2.4)
--- NOTE | 2020-05-20 04:42 | NUR ---
Q2 TURN. HAD SMALL BM AT BEGINNING OF SHIFT. BORRERO HAS CLEAR YELLOW OUTPUT. RECEIVED ALL ABX SCHEDULED. ALERT AND ORIENTED, DID NOT ATTEMPT TO SIT UP ALL SHIFT. NO PAIN REPORTED. NO NAUSEA/VOMITING. WOUND DRESSING ON RIGHT FOOT IS C/D/I. PT SLEPT MOST ALL NIGHT. WILL CONTINUE TO MONITOR.
[2020-05-20 08:00] VITALS: BP 121/73
[2020-05-20 15:00] VITALS: BP 113/71
--- NOTE | 2020-05-20 17:19 | NUR ---
PATIENT GIVEN KAYEXELATE THIS AM FOR POTASSIUM OF 6.0. PATIENT HAD MULT LIQUID BM'S THIS EVENING AND A LARGE FORMED BM. IV ABX INFUSED ORDERED. PRN TRAMADOL GIVEN X 1 FOR GENERALIZED PAIN. PT HERE THIS AM TO WORK WITH PATIENT, PATIENT DID SIT EDGE OF BED BUT WAS UNABLE TO GET OUT OF BED. PER PT PATIENT ARGUED WITH PT AND STATED SHE COULD GET UP HER OWN WAY. PER PT PATIENT THEN REFUSED TO GET OUT OF BED AT ALL. PATIENT REFUSED TACO LIFT MULTIPLE TIMES THIS SHIFT TO GET INTO CHAIR, PATIENT INFORMED THIS WAS THE SAFEST WAY TO GET PATIENT OUT OF BED, PATIENT CONTINUED TO REFUSE. TURNED Q2. BUTTOCKS WOUNDS OPEN TO AIR AT THIS TIME PATIENT IS HAVING MULT BM'S FROM KAYEXELATE AND DRESSINGS UNABLE TO REMAIN DRY AND INTACT. DR. ALDANA HERE THIS AFTERNOON AND DRESSING TO RIGHT FOOT AND LEFT BKA CHANGED AND PHOTOS OBTAINED. PATIENT REFUSED DINNER THIS EVENING. PATIENT STATED SHE FELT LIKE SHE WAS GETTING DEPRESSED FROM HAVING TO BE IN THE HOSPITAL FOR LONG PERIOD OF TIME.
[2020-05-20 20:43] VITALS: BP 116/62
--- NOTE | 2020-05-21 05:50 | NUR ---
PATIENT HAD LARGE BM THIS MORNING. MAX ASSIST, Q2 TURN. ALERT AND ORIENTED 2L - O2. APPLIED INTER-DRY UNDER PANNUS AND COVERED WOUND ON BUTTOCKS WITH ABD PAD. BARRIER CREAM APPLIED TO BUTTOCKS. BORRERO HAS GOOD YELLOW CLEAR OUTPUT. PT DID NOT REPORT ANY PAIN OR NEED FOR PAIN MEDS OR ANY NAUSEA. RECEIVED ALL ABX AND MEDS SCHEDULED. ENCOURAGED HYDRATION. KEPT HEAD ELEVATED TO PREVENT ASPIRATION. DRESSING ON RIGHT FOOT C/D/I. WILL CONTINUE TO FOLLOW PLAN OF CARE.
[2020-05-21 06:06] LABS: CALCIUM 8.7 mg/dL (8.5-10.1); CREATININE 1.5 mg/dL (0.6-1.3); MAGNESIUM 2.5 mg/dL (1.8-2.4); POTASSIUM 5.2 mmol/L (3.5-5.1)
--- NOTE | 2020-05-21 08:50 | NUR ---
TE spoke with Teto from [place], confirmed receipt of referral and requested additional info. TE informed Teto of Pt's move to room 106 and updated on CM assignment.
[2020-05-21 10:11] VITALS: BP 119/61
--- NOTE | 2020-05-21 11:47 | NUR ---
CM RECIEVED CALL FROM ADMISSIONS AT [facility] M.P. ADMISSIONS REQUEST TO HAVE AN ON-SITE VISIT WITH THE PT. CM INFORMED THAT AT THIS TIME THAT IS NOT ALLOWED DUE TO COVID-19. ADMISSIONS INFORMS THAT 'THIS WILL MAKE IT DIFFICULT TO PROPERLY ASSSES THE PT, BUT WILL CONSIDER IF ABLE TO SPEAK TO THE RN IN-CHARGE OF THE PT AND WITH ADDITONAL PROGRESS NOTES. CM FAXED REQUESTED INFO TO . CM AWAITING RETURN CALL FROM ADMISSIONS. CM WILL REMAIN AVAILABLE TO ASSIST AND FOLLOW NEEDED.
--- NOTE | 2020-05-21 16:18 | NUR ---
ALL WOUND CARE DONE. PATIENT TOLERATED WELL. SHE IS IN THE BED WE REPOSITIONED HER AND MADE HER COMFORTABLE. SHE IS WATCHING TV AT THIS TIME.
--- NOTE | 2020-05-21 17:04 | NUR ---
PATIENT HAS BEEN TURNED AND REPOSITIONED AND TREVA CARE NEEDED. SHE TOLERATES WELL. SHE IS ON A PRESSURE RELIEF BED AND SHE DID SIT UP ON THE SIDE OF THE BED FOR QUITE A WHILE TODAY. SHE DENIES NEED FOR PAIN MEDICATION. I DID ALL OF HER WOUND CARE TODAY AND THE WOUND CARE NURSE CAME BY AND DID HER BOTTOM DRESSINGS. SHE IS ALERT AND ORIENTED X 4 BUT MENTALLY SHE SEEMS SLOW. FALL PRECAUTIONS HAVE BEEN MAINTAINED AND BED ALARM IS ON AT THIS TIME. NO DISTESS NOTED TODAY AND VITAL SIGNS HAVE BEEN STABLE. ANTIBIOTICS IVPB CONTINUE. CALL LIGHT IN EASY REACH.
[2020-05-21 18:25] VITALS: BP 130/84
--- NOTE | 2020-05-22 06:38 | NUR ---
PATIENT HAS SLEPT WELL MOST OF THE NIGHT. VSS ON 2L 02 VIA NASAL CANNULA. MEDICATIONS GIVEN ORDERED AND CHARTED. PATIENT TURNED EVERY 2 HRS. DRESSING TO BILATERAL LOWER EXTREMITY WOUNDS ARE C/D/I AND DRESSINGS TO BUTTOCKS ARE C/D/I. BORRERO TO DEPENDENT DRAINAGE WITH YELLOW URINE OUTPUT. LEFT SUBCLAVIAN TRIPLE LUMEN-SL. IV ABT'S GIVEN WITHOUT ANY ADVERSE SIDE EFFECTS NOTED. FALL PRECAUTIONS IN PLACE AND HOURLY ROUNDS MADE. WILL CONTINUE WITH PLAN OF CARE AND NURSING TO MONITOR.
[2020-05-22 09:24] VITALS: BP 123/76
[2020-05-22 14:19] LABS: URINE BILIRUBIN NEGATIVE (Negative); URINE BLOOD 1+ (Negative); URINE CLARITY CLEAR; URINE COLOR YELLOW; URINE GLUCOSE-RANDOM NEGATIVE (Negative); URINE KETONES NEGATIVE (Negative); URINE LEUKOCYTES TRACE (Negative); URINE NITRITE NEGATIVE (Negative); URINE PROTEIN TRACE (Negative); URINE SPECIFIC GRAVITY 1.025 (1.005-1.030); URINE UROBILINOGEN 0.2 E.U./dl (0.2-1.0)
[2020-05-22 14:27] LABS: BACTERIA 1-9 Few /HPF (None Seen); HYALINE CASTS 0-3 Few /LPF (None Seen); MUCUS None Seen strn/LPF (None Seen); SQUAMOUS 0-3 Few /LPF (0-3); URINE RBC 3-10 Few /HPF (0-2); URINE WBC 6-15 Few /HPF (0-5)
[2020-05-22 14:28] LABS: CRYSTALS None Seen /LPF (None Seen); YEAST Present (None Seen)
[2020-05-22 16:15] VITALS: BP 122/62
--- NOTE | 2020-05-22 17:32 | NUR ---
PATIENT HAD INCREASED PAIN THIS AM AND I ADMINISTERED FENTANYL. SHE HAS SLEPT MOST OF THE DAY AND HAS BEEN IRRITABLE. OT TRIED TO GET HER UP TO AMBULATE TO THE CHAIR AND PATIENT IS UNABLE WE ARE USING THE LIFT TO TRANSFER HER. SHE HAS HAD A VERY POOR APPETITE TODAY AND ONLY DRINKS THE ENSURE AND EATS THE DESSERT. HER BORRERO IS DRAINING TO GRAVITY AND DOES HAVE SEDIMENT IN THE TUBING. HER CENTRAL LINE IS PATENT AND HAS BEEN FLUSHED ORDERED. ALL MEDICATIONS HAVE BEEN ADMINISTERED PER ORDERS. PATIENT IS ALERT AND ORIENTED AND HER HAS BEEN HERE MOST OF THE DAY. SHE HAS BEEN TURNED AND REPOSITIONED EVERY 2 HOURS AND ALL WOUND CARE WAS DONE. NO DISTRESS NOTED.
[2020-05-22 20:30] VITALS: BP 125/62
--- NOTE | 2020-05-23 06:57 | NUR ---
Oriented x 4 but mostly quiet. She has scabs and wounds all over. She has dressings to coccyx and bilat buttocks, L stump and rt foot. She has requested pain meds this shift but last dose has pain at 5. She had cleary to DD. She has slept well.
[2020-05-23 07:55] VITALS: BP 134/81
--- NOTE | 2020-05-23 13:58 | NUR ---
TE RECIEVED A CALLBACK FROM WEN WITH ADMISSIONS AT [facility] AND SHE INFORMS THAT THE PATIENT HAS BEEN CLINICALLY ACCEPTED, BUT WILL NEED TO GET INSURANCE AUTH PRIOR TO FULLY ACCEPTING THE PT. WEN INFORMS THAT AUTH COULD BE RECEIVED TODAY, BUT MORE THAN LIKELY IT WOULD BE TOMORROW. WEN TO CONTACT TE SOON AUTH IS RECIEVED. TE INFORMED THE PT AND HER SPOUSE OF THIS AND THEY ARE IN AGREEMENT. TE WILL REMAIN AVAILABLE TO ASSIST AND FOLLOW NEEDED.
[2020-05-23 14:14] LABS: ABSOLUTE BASOPHILS 0.2 thou/uL (0.0-0.2); ABSOLUTE EOSINOPHILS 0.1 thou/uL (0.0-0.7); ABSOLUTE LYMPHOCYTES 1.4 thou/uL (0.8-5.3); ABSOLUTE MONOCYTES 0.7 thou/uL (0.0-1.2); ABSOLUTE NEUTROPHILS 9.5 thou/uL (1.6-8.1); BASOPHILS 1.3 %; EOSINOPHILS 1.2 %; HEMATOCRIT 33.1 % (37.0-47.0); HEMOGLOBIN 10.4 gm/dL (12.0-15.0); LYMPHOCYTES 11.6 %; MCH 24.7 pg (26.0-34.0); MCHC 31.3 g/dL (28.0-37.0); MCV 78.9 fL (80.0-100.0); MONOCYTES 5.5 %; MPV 8.3 fl. (7.2-11.1); NUCLEATED RBCS 0 /100WBC; PLATELET COUNT* 442 thou/uL (150-400); POLYS 80.4 %; RBC 4.19 mil/uL (4.20-5.00); RDW-CV 19.9 % (10.5-14.5); WBC 11.8 thou/uL (4.0-11.0)
[2020-05-23 14:17] LABS: CALCIUM 8.1 mg/dL (8.5-10.1); CREATININE 1.6 mg/dL (0.6-1.3); POTASSIUM 5.9 mmol/L (3.5-5.1)
[2020-05-23 15:36] VITALS: BP 113/61
--- NOTE | 2020-05-23 19:17 | NUR ---
PATIENT RESTING IN BED. PATIENT HAS HAD COMPLAINTS OF GENERALIZED PAIN, TREATED WITH REPOSITIONING AND FENTANYL. PATIENT IS UP WITH TACO LIFT AND SAT IN RECLINER THIS AM. PATIENT IS ON SPECIALTY BED. PATIENT HAS GOOD APPETITE. WOUND DRESSING TO RIGHT FOOT AND LEFT STUMPED CHANGED BY DR ALDANA THIS AFTERNOON. PATIENT YELLS OUT INSTEAD OF USING CALL LIGHT MOST OF TIME, PATIENT REEDUCATED MULTIPLE TIMES RISK CONTROL PRODUCT LIABILITY DIRECTOR LIGHT USE. PATIENT DENIES ANY NEEDS AT THIS TIME. CALL LIGHT WITHIN REACH.
[2020-05-23 19:40] VITALS: BP 119/56
--- NOTE | 2020-05-24 06:54 | NUR ---
Pt alert and oriented x3. Vss on RA. Meds given per emar. Pt denies pain this shift. Wounds and scabs all over pt's body. Q2 turn. Pt slept well this shift. Pt voiced being aggravated because Torres her is not in to see her yet. Pt had a bm this shify. Fall precaution in place. Call light within reach. Hourly roundings made. Will continue to monitor.
[2020-05-24 07:40] VITALS: BP 133/79
[2020-05-24] MEDS ORDERED: ENOXAPARIN40 MG/0.1 SUBQ (15:01)
[2020-05-24 15:55] VITALS: BP 137/83
--- NOTE | 2020-05-24 17:47 | NUR ---
PT AOX3, FORGETFUL AND SLOW TO RESPOND AT TIMES. PT UP TO CHAIR WITH PT WITH TACO LIFT. PT C/O MOD PAIN IN BLE, MANAGING WITH TRAMADOL PO. TOLERATING ADA DIET. PT RECEIVED IV ANTIBIOTICS AND TOLERATED WELL. NO OTHER C/O THIS SHIFT. WOUND DONE PER WOUND CARE NURSE. WILL CONTINUE TO MONITOR
[2020-05-24 20:00] VITALS: BP 104/63
--- NOTE | 2020-05-25 04:43 | NUR ---
PT A&O X 3-4, VSS ON 1L. MEDS GIVEN ORDERED. C/O PAIN AFTER REPOSITIONED. FENTANYL GIVEN. DRESSINGS INTACT. NPO SINCE MIDNIGHT. BORRERO IN PLACE. CALL LIGHT WITHIN REACH. HOURLY ROUNDINGS, TURNS MADE. WILL CONTINUE TO MONITOR.
[2020-05-25 04:51] LABS: ABSOLUTE BASOPHILS 0.1 thou/uL (0.0-0.2); ABSOLUTE EOSINOPHILS 0.2 thou/uL (0.0-0.7); ABSOLUTE LYMPHOCYTES 1.6 thou/uL (0.8-5.3); ABSOLUTE MONOCYTES 0.7 thou/uL (0.0-1.2); ABSOLUTE NEUTROPHILS 7.4 thou/uL (1.6-8.1); BASOPHILS 0.6 %; EOSINOPHILS 1.8 %; HEMATOCRIT 32.1 % (37.0-47.0); HEMOGLOBIN 10.1 gm/dL (12.0-15.0); LYMPHOCYTES 16.4 %; MCH 24.6 pg (26.0-34.0); MCHC 31.5 g/dL (28.0-37.0); MCV 78.1 fL (80.0-100.0); MONOCYTES 6.8 %; MPV 8.2 fl. (7.2-11.1); NUCLEATED RBCS 0 /100WBC; PLATELET COUNT* 436 thou/uL (150-400); POLYS 74.4 %; RBC 4.11 mil/uL (4.20-5.00); RDW-CV 19.8 % (10.5-14.5)
[2020-05-25 05:07] LABS: INR 1.4; PROTIME 14.2 Seconds (9.20-11.50)
[2020-05-25 05:12] LABS: CALCIUM 8.2 mg/dL (8.5-10.1); CREATININE 1.7 mg/dL (0.6-1.3); POTASSIUM 5.9 mmol/L (3.5-5.1)
[2020-05-25 07:20] VITALS: BP 92/55
[2020-05-25 12:28] VITALS: BP 92/55
--- NOTE | 2020-05-25 15:28 | NUR ---
RIGHT CEPHALIC VESSEL ACCESSED FOR 4 LATVIAN SINGLE PICC BUT, UNABLE TO ADVANCE GUIDE WIRE PAST THE AXILL WITH SERVERAL ATTEMPTS. RESISTANCE MET. NEEDLE WITHDRAWN AND PRESSURE APPLIED WITH 2X2 GAUZE AND TAPE. RIGHT BASILIC VESSEL ACCESSED BUT UNABLE TO ADVANCE GUIDEWIRE PAST THE AXILLA. NEEDLE WITHDRAWN AND PRESSURE HELD WITH 2X2 GAUZE AND TAPE. LEFT UPPER ARM LARGE VESSELS EVALUATED WITH ULTRASOUND AND THROMBOPHLEBITIS OBSERVED IN THE CEPHALIC AND BASILIC/BRACHIAL VESSELS. DR PRECIADO NOTIFIED OF ANATOMICAL DIFFICULTIES AND PERIPHERAL IV ACCESSED OBTAINED IN THE RIGHT PRE-ANTECUBITAL VESSEL. REPORT GIVEN TO VERA WALLS.
[2020-05-25 15:30] VITALS: BP 128/55
--- NOTE | 2020-05-25 15:43 | NUR ---
PT IN NEED OF PICC LINE PRIOR TO D/C, HER CENTRAL LINE IS OUT OF PLACE. AT THIS TIME PICC PLACEMENT IS NOT POSSIBLE DUE TO COMPLICATIONS. RN INFORMED THE PHYSICIAN. PT IN NEED OF ACCESS DUE TO IV ABTS. CM INFORMED [facility] OF THIS INFO, AND THEY INFORM THAT THE PT'S SKILLED AUTH IS ONLY GOOD THRU 05/25/20. IF PT CONTINUES TO REQUIRE SNF AT D/C IT WILL REQUIRE A NEW SNF INS AUTH. PT WILL REMAIN INPT THRU THE WEEKEND. NURSING AWARE. CM WILL REMAIN AVAILABLE TO ASSIST AND FOLLOW NEEDED.
--- NOTE | 2020-05-25 18:02 | NUR ---
Pt AOx4. Pt had arterigram today with stent placement, pressure dressing in place. Pt lost central line access, PICC placement attempted, unable to obtain d/t poor peripheral access and anatomical changes. Pt has PIV currently and IR consulted for possible TICC placement. Pt tolerating renal diet. Podiatry in to change dressing to BLE. Pt on 1L O2 to maintain sats. Will continue to monitor
[2020-05-26] VITALS: BP 102/54
[2020-05-26 04:13] LABS: CALCIUM 8.1 mg/dL (8.5-10.1); CREATININE 1.8 mg/dL (0.6-1.3); MAGNESIUM 2.1 mg/dL (1.8-2.4)
[2020-05-26 04:26] LABS: POTASSIUM 6.1 mmol/L (3.5-5.1)
--- NOTE | 2020-05-26 06:40 | NUR ---
PT A&O, FORGETFUL AT TIMES. PAIN MANAGED WITH TRAMADOL. VSS ON RA. DRESSINGS INTACT. BORRERO IN PLACE. HOURLY ROUNDINGS MADE. K+ 6.[address] NOTIFIED AND ORDER RECEIVED. WILL CONTINUE TO MONITOR.
[2020-05-26 16:00] VITALS: BP 110/50
--- NOTE | 2020-05-26 17:30 | NUR ---
ASSUMED CARE OF PATIENT AT 1530. REPORT RECEIVED FROM DILIA. PATIENT IS RESTING IN BED. PATIENT USED BEDPAN FOR BOWEL MOVEMENT. BORRERO CATHETER IN PLACE DRAINING YELLOW URINE. PATIENT HAD POOR APPETITE FOR DINNER. PATIENT DENIES ANY NEEDS AT THIS TIME. CALL LIGHT WITHIN REACH.
[2020-05-26 21:30] VITALS: BP 141/80
--- NOTE | 2020-05-27 07:00 | NUR ---
PATIENT HAS SLEPT OFF AND ON DURING THE NIGHT. VSS ON RA. PATIENT VERY FUSSY AND ANXIOUS AT TIMES. MEDICATIONS GIVEN ORDERED AND CHARTED. DRESSING TO LEFT STUMP CHANGED DURING THE NIGHT AND BUTTOCKS DRESSING CHANGED DURING THE NIGHT. PATIENT HAD A VERY LARGE BOWEL MOVEMENT AND TREVA CARE PERFORMED. BORRERO TO DEPENDENT DRAINAGE WITH YELLOW URINE OUTPUT. IV IN RIGHT FOREARM-SL. IV ABT GIVEN WITHOUT ANY ADVERSE SIDE EFFECTS NOTED. PATIENT TURNED EVERY 2 HRS AND PRN. FALL PRECAUTIONS IN PLACE AND HOURLY ROUNDS MADE. WILL CONTINUE WITH PLAN OF CARE AND NURSING TO MONITOR.
[2020-05-27 07:15] VITALS: BP 121/95
--- NOTE | 2020-05-27 13:33 | OP ---
[address] [place] [id number] OPERATIVE REPORT Name: CHRISS CHANG Room: [address] IN M.R.#: [id number] Admission: 05/14/20 Attend Phys: Portillo Lakhani MD Discharge: Date of : 58 Report #: [id number] THIS REPORT FOR: //name// cc: Noble Little MD, Samuel D. MD ~ THIS REPORT FOR: //name// CC: Portillo Little DATE OF SERVICE: 05/25/2020 PREOPERATIVE DIAGNOSIS: Peripheral vascular disease with ulcers, right lower extremity. POSTOPERATIVE DIAGNOSIS: Peripheral vascular disease with ulcers, right lower extremity. SURGEON: Darrius Chang DO FOOD SAFETY SPECIALIST: HERVE Diaz ANESTHESIA: Local anesthetic. ESTIMATED BLOOD LOSS: Minimal. PROCEDURES: 1. Ultrasound-guided access, left common femoral artery. 2. Aortogram. 3. Right lower extremity angiogram, catheter position, third order. 4. Angioplasty and stent to the right superficial femoral artery with Bard Trumbull 5 x 150; angioplasty balloon, Bard LifeStent 6 x 150 and Bard 6 x 150 Ultraverse balloon. 5. Limited angiogram, left common femoral artery with left leg angiogram for stump pain. ESTIMATED BLOOD LOSS: Minimal. SPECIMEN: None. COMPLICATIONS: None. CONDITION: Stable. DISPOSITION: Floor. [address] [id number] OPERATIVE REPORT Name: CHRISS CHANG Room: [address] IN [facility]#: [id number] Admission: 05/14/20 Attend Phys: Portillo Lakhani MD Discharge: Date of : 58 Report #: [id number] INDICATIONS FOR THE PROCEDURE AND CONSENT: The patient is a 60-year-old female who has a left below-knee amputation and renal insufficiency, not yet on dialysis. She has an ulcer of her right foot with suspected severe peripheral vascular disease of the right lower extremity. A recommendation for CO2 angiogram with possible intervention was made. Risks and benefits were discussed including infection, bleeding, renal failure, stroke, heart attack, and limb loss despite intervention. The patient wished to proceed, was consented and scheduled. PROCEDURE IN DETAIL: After timeout was performed, the patient was placed in supine position with sterile prep and drape of the anterior abdomen, bilateral groins, bilateral thighs. Ultrasound was utilized to identify the left common femoral artery and Seldinger technique used to place 6-Swedish sheath. Glidewire Advantage and UF catheter were advanced into the infrarenal abdominal aorta and aortogram was performed with CO2. This demonstrated the aorta, bilateral common, internal and external iliac vessels to be patent, not appear to be significant flow limitation, although CO2 angiography was somewhat limited. Glidewire Advantage and UF catheter were advanced into the right external iliac vessel under fluoroscopic guidance and exchanged for an up and over 6-Swedish sheath. The right lower extremity angiogram was performed with CO2 which demonstrated likely a near occlusion or possibly a complete total occlusion of the right superficial femoral artery. There appeared to be 2-vessel runoff below the knee. There did not appear to be a gross stenosis or occlusion, otherwise. At this point, I systemically heparinized the patient with 6000 units of heparin. We did this through the sheath as the IV central venous access catheter was nonfunctional. I did advance the ____ to the chest, which demonstrated the central venous catheter to be within the left subclavian vein and did not appear to be in at the atriocaval junction. This likely needs to be repositioned and we will give this information to the primary team. At this point, the Glidewire Advantage and seeker catheter was then advanced through the superficial femoral artery without difficulty and a 5 mm Trumbull balloon was then used to predilate this area. After angioplasty was performed, the 6 mm LifeStent was advanced into position under fluoroscopic guidance and deployed. Post angiography demonstrated excellent radiographic result except for one area near the distal portion of the stent, which appeared to be somewhat resistant. This was ballooned with the 6 mm Ultraverse balloon. Repeat angiography demonstrated good radiographic result without flow limitation or stenosis. Two-vessel runoff below the knee was preserved. I then retracted the sheath in the left external iliac vessel and performed left lower extremity angiogram. This demonstrated the left common femoral and profunda artery to be patent. The superficial femoral artery was occluded, but [facility] [address] [place] [address] OPERATIVE REPORT Name: CHRISS CHANG Room: [address] IN .R.#: [id number] Admission: 05/14/20 Attend Phys: Portillo Lakhani MD Discharge: Date of : 58 Report #: [id number] did reconstitute briefly at the popliteal level. There was very little flow distally and collaterals on the stump, which may explain the patient's rest pain. At this point, the procedure was terminated. A 6-Swedish Angio-Seal was selected and deployed in standard fashion. Pressure was held for 5 minutes for additional hemostasis. The patient was transferred to recovery in stable condition. <ELECTRONICALLY SIGNED> By: Darrius Chang DO 05/27/20 1333 [id number] Chang DO /nt
--- NOTE | 2020-05-27 16:50 | NUR ---
PT REMAINED ALERT AND ORIENTED. DRESSING CHANGED PER JOVAN, PICTURES TAKEN. PT DENIED ANY NEEDS. FALL RISK PRECAUTIONS IN PLACE. HOURLY ROUNDING COMPLETED. Q2 TURNS. WILL CONTINUE TO MONITOR.
[2020-05-27 16:56] VITALS: BP 123/63
[2020-05-27 20:30] VITALS: BP 123/84
--- NOTE | 2020-05-28 08:55 | NUR ---
TE SPOKE TO BIJU WITH [facility] ADMISSIONS TO DISUCSS THE ABILITY TO ACCEPT THE PT PENDING PLACEMENT OF LINE FOR IV ABT'S. BIJU INFORMS THAT AUTH HAS BEEN RESUBMITTED AND THE PT IS APPROVED THROUGH TODAY. TE INFORMED NURSING THE PT OF THIS INFO. CM WILL REMAIN AVAILABLE TO ASSIST AND FOLLOW NEEDED.
[2020-05-28] MEDS ORDERED: TRAMADOL 50 MG50 MG PO (09:21)
[2020-05-28] MEDS ORDERED: LIDOPATCH1 EACH TOP (09:21)
[2020-05-28] MEDS ORDERED: PAIN RELIEVER500 MG PO (09:21)
[2020-05-28] MEDS ORDERED: LIPITOR 40 MG T40 M1 PO (09:21)
[2020-05-28] MEDS ORDERED: NYAMYC15 GM TOP (09:21)
[2020-05-28 14:52] VITALS: BP 114/69
[2020-05-28 15:34] LABS: BE 2.2 mmol/L (-2 to +3); PO2 69.6 mmHg (75.0-100.0); pH 7.339 (7.340-7.450)
[2020-05-28 15:38] LABS: PCO2 54.9 mmHg (35.0-45.0)
--- NOTE | 2020-05-28 15:51 | NUR ---
CRITCAL ABG, PCO2 OF 54.9, DR BURTON NOTIFED. DR BURTON RETURNED CALL, STATED THAT SINCE PH LEVEL IS 7.339 PT IS NOT RETAINING PCO2 AND IS STABLE TO DISCHARGE PLANNED TO SKILLED FACILITY.
[2020-05-28 16:37] VITALS: BP 92/55
--- NOTE | 2020-05-28 16:38 | NUR ---
Pt discharged with EMS to SNF. Pt was sent with chart information and discharge instructions. TICC line in place and patent. Pt was more lethargic and slow to respond to staff, paged and STAT ABGs drawn. Pt had CH pCO2, MD aware and stated it was okay to discharge patient. Pt mentation seemed to decline when EMS arrived, transferred to [facility]. paged again to notify of pt status, EMS had left the building after MD paged, unable to notify them. Report given to Thong at [facility] and notified this nurse of status as well.
--- NOTE | 2020-05-30 13:10 | CON ---
[address] [address] CONSULTATION Name: CHRISS CHANG Room: [address] IN M.R.#: [id number] Admission: 05/14/20 Attend Phys: Portillo Lakhani MD Discharge: 05/28/20 Date of : 58 Report #: [id number] THIS REPORT FOR: //name// cc: Noble Little MD, Samuel D. MD ~ THIS REPORT FOR: //name// CC: Roberto Gannos Noble Litlte DATE OF SERVICE: 05/17/2020 CHIEF COMPLAINT: Follow up regarding bilateral lower extremity wounds complicated by type 2 diabetes mellitus, peripheral arterial disease, malnutrition, and obesity. She is currently on parenteral vancomycin and meropenem. Awaiting aortogram pending renal improvement. She is more responsive, complains of generalized pain, remained afebrile, minimal p.o. intake. Arterial Doppler shows triphasic inflow waveform to the right leg at the common femoral artery, which then becomes monophasic at the distal SFA. The right popliteal artery was monophasic with occlusion of the right posterior tibial artery. There is monophasic flow through the anterior tibial artery into the dorsalis pedis. Aerobic wound culture grew Proteus mirabilis, Enterococcus faecalis, Acinetobacter, coagulase-negative Staphylococcus, and Enterobacter cloacae. LABORATORY DATA: WBC 9.1, RBC 3.84, hemoglobin 9.7, hematocrit 30.2, platelets 289, BUN 58, creatinine 1.5, glucose 96. Albumin 2.3. Hemoglobin A1c 12.7. PHYSICAL EXAMINATION: Eschar to the right dorsal lateral foot is softened since admission and now it is firmly adhered. The eschar measures roughly 7.0 x 8.0 cm and encompasses much of the right dorsal lateral foot. There is surrounding inflammation consistent with cellulitis. There are multiple yellow/brown eschars to the right medial calf. The left below-knee amputation stump has multiple superficial wounds. The right foot and leg are much warmer than upon admission. There is no pallor or cyanosis noted. IMPRESSION: Right dorsal foot wound, right posterior medial calf wound, left distal BKA stump wounds, type 2 diabetes mellitus, peripheral arterial disease, obesity, urinary tract infection, diabetic nephropathy, morbid obesity, chronic obstructive pulmonary disease, congestive heart failure, coronary artery disease, hypertension, and generalized debility. PLAN: An excisional ulcer debridement was performed to the right dorsal foot with a #10 scalpel and forceps. A 10 mL of 1% lidocaine plain were infiltrated proximal to the dorsal foot wound. The surgical scalpel was used to excise the surface of the eschar through the deep [place] [address] CONSULTATION Name: CHRISS CHANG Room: [facility] IN M.R.#: [id number] Admission: 05/14/20 Attend Phys: Portillo Lakhani MD Discharge: 05/28/20 Date of : 58 Report #: [id number]. There is no healthy granulation to the area. There is no abscess or pockets of purulence. I debrided the entire volume of the wound as thoroughly as possible without violating the extensor tendons or underlying metatarsophalangeal joints. The total area debrided was roughly 7 x 8 cm. I removed a substantial amount of yellow/brown fibronecrotic tissue, which was soft and friable. There was some scant bleeding to the debridement site during the procedure, but this was stopped with direct pressure. The wound was thoroughly flushed with wound cleanser and dried. It was then dressed with Vaseline impregnated gauze, ABDs and Kerlix gauze. Vaseline gauze and silver foam were applied to the right posterior medial calf wound and left distal BK stump. I will discuss with Vascular Surgery. I do not anticipate further surgical debridement at this point, as I would prefer an attempted revascularization to maximize arterial perfusion. I will follow up with the patient tomorrow and perform her dressing changes. <ELECTRONICALLY SIGNED> By: Brian Francis DPM 05/30/20 1310 1852 Brian Francis DPM /lynn
--- NOTE | 2020-05-30 13:10 | CON ---
[facility] [address] [place] [address] CONSULTATION Name: CHARLENECHRISS Cynthia Room: [address] IN M.R.#: [id number] Admission: 05/14/20 Attend Phys: Portillo Lakhani MD Discharge: 05/28/20 Date of : 58 Report #: [id number] THIS REPORT FOR: //name// cc: Noble Little MD, Samuel D. MD ~ THIS REPORT FOR: //name// CC: Portillo Little DATE OF SERVICE: 05/20/2020 CHIEF COMPLAINT: Followup of bilateral lower extremity wounds with polymicrobial soft tissue infection to the right foot. She remains on parenteral vancomycin and meropenem. She is occlusive peripheral arterial disease to the right lower extremity with history of prior angioplasty/stenting. LABORATORY DATA: Sodium 137, potassium 6.0, chloride 105, CO2 of 27, BUN 56, creatinine 1.6, glucose 163. PHYSICAL EXAMINATION: VITAL SIGNS: Temperature 99.7, pulse 77, respirations 20, blood pressure 121/73. SKIN: There is a slight decrease in inflammation to the right dorsal lateral foot since yesterday. The wound bed has black/brown eschar to the inferior margin with some fibronecrotic slough to the remaining wound bed. The digital extensor tendons are visible, no visible bone or joint. There is some inflammation to the right plantar arch with a dry eschar to the medial arch region. The remaining eschars are dry and stable. The left BKA stump is less inflamed with dry eschars. IMPRESSION: Peripheral artery disease; type 2 diabetes mellitus; polymicrobial deep tissue infection, right foot. PLAN: The right dorsal lateral foot wound was cleansed and redressed with Aquacel Ag, as well as the left distal BKA stump wounds. The remaining dry eschars were painted with Betadine. I anticipate further right foot debridement, hopefully after vascular intervention. This could be performed at bedside or in the OR with local anesthesia and IV sedation, if needed. Right now the foot wound is fairly stable with no progressive soft tissue loss. I will follow up with the patient tomorrow and inspect her wounds. <ELECTRONICALLY SIGNED> By: Brian Francis DPM 05/30/20 1310 1323 1332Dduy Francis DPM /nt
--- NOTE | 2020-05-30 13:10 | CON ---
[address] [address] CONSULTATION Name: CHARLENECHRISS R Room: [address] IN M.R.#: [id number] Admission: 05/14/20 Attend Phys: Portillo Lakhani MD Discharge: 05/28/20 Date of : 58 Report #: [id number] THIS REPORT FOR: //name// cc: Noble Little MD, Samuel D. MD ~ THIS REPORT FOR: //name// CC: Roberto Sofia DATE OF SERVICE: 05/14/2020 ADMISSION DIAGNOSIS: Ischemia with cellulitis, right lower extremity. HISTORY OF PRESENT ILLNESS: The patient is a 60-year-old female admitted for acute pain, swelling and cellulitis to the right lower extremity, complicated by type 2 diabetes mellitus and peripheral vascular disease. She is status post left AK amputation. She relates increased redness and pain to the right lower leg, and she has a full-thickness ulceration to the dorsal lateral foot with an overlying dry eschar. She is currently on parenteral vancomycin and cefepime. Blood cultures are negative thus far. Arterial Doppler was performed, report is pending. X-ray was negative for osteomyelitis. LABORATORY DATA: WBC 9.6, hemoglobin 11.4, hematocrit 36.1, and platelets 325. BUN 66, creatinine 1.6, and glucose 217. PHYSICAL EXAMINATION: Temperature 98.2, respirations 28, and blood pressure 88/42. The patient has inflammation to the right lower leg extending to the dorsal foot consistent with cellulitis. There is a large dry stable eschar to the dorsal foot with no underlying fluctuance, crepitation, or signs of deep infection. The right leg is very cool to the touch with nonpalpable dorsalis pedis and posterior tibial pulses. She has dependent rubor to the extremity, decreased hair growth and thin, shiny atrophic skin. No popliteal adenopathy noted. Negative Homans sign. Toenails are dystrophic without paronychia. IMPRESSION: Ischemic right lower extremity with peripheral artery disease, cellulitis, and type 2 diabetes mellitus. PLAN: The patient requires vascular intervention. Planned CTA with runoff. In terms of wound care, I agree with the wound care nurses notes. It is reasonable to apply Aquacel Ag and/or Vaseline gauze to the eschars and superficial wounds and cover them with ABDs and Kerlix gauze. [place] [address] CONSULTATION Name: CHRISS CHANG Room: [address]#: [id number] Admission: 05/14/20 Attend Phys: Portillo Lakhani MD Discharge: 05/28/20 Date of : 58 Report #: [id number] intervention regarding the foot wounds. I do feel she is at high risk for losing her right leg due to her advanced peripheral arterial disease. <ELECTRONICALLY SIGNED> By: Brian Francis DPM 05/30/20 1310 1140 [id number] Francis DPM /nt
--- NOTE | 2020-05-30 13:10 | CON ---
[address] [address] CONSULTATION Name: CHARLENECHRISS Cynthia Room: [address] IN M.R.#: [id number] Admission: 05/14/20 Attend Phys: Portillo Lakhani MD Discharge: 05/28/20 Date of : 58 Report #: [id number] THIS REPORT FOR: //name// cc: Noble Little MD, Samuel D. MD ~ THIS REPORT FOR: //name// CC: Portillo Little DATE OF SERVICE: 05/18/2020 CHIEF COMPLAINT: Bilateral lower extremity wounds with cellulitis, type 2 diabetes mellitus, PAD, acute renal failure, septicemia, CHF, morbid obesity. The patient is alert, relates generalized low-grade pain. Polymicrobial growth to cultured wound. Yesterday, I performed a debridement of the right dorsal foot wound under local anesthesia. Awaiting renal improvement for aortogram by Vascular service. She is on parenteral meropenem. PHYSICAL EXAMINATION: VITAL SIGNS: Temperature 98.1, pulse 80, respirations 18, blood pressure 84/63. EXTREMITIES: Localized inflammation of the right dorsal foot wound. No active bleeding, exposed extensor tendons to the third and fourth toes. No visible bone or joint. Sparse granulation to the superior wound margin with some residual pale fibrosis at the inferior margin. No underlying fluctuance or crepitation. The foot is warm with no pallor/cyanosis or signs of acute vascular embarrassment. The left BKA stump is improved with less inflammation and scant drainage on her bandage. IMPRESSION: Bilateral lower extremity wounds with cellulitis, right lower extremity. PLAN: The right lower extremity wound was covered with Aquacel Ag and covered with ABDs and Kerlix gauze. The left BKA stump was covered with Aquacel Ag, ABDs, and Tegaderm. I will perform daily dressing changes during her hospitalization. Anticipate aortogram next week pending improvement of her renal function. <ELECTRONICALLY SIGNED> By: Brian Francis DPM 05/30/20 1310 1238 [id number] Francis DPM /nt
--- NOTE | 2020-05-30 13:10 | CON ---
[facility] [address] [place] [address] CONSULTATION Name: CHARLENECHRISS R Room: [address] IN M.R.#: [id number] Admission: 05/14/20 Attend Phys: Portillo Lakhani MD Discharge: 05/28/20 Date of : 58 Report #: [id number] THIS REPORT FOR: //name// cc: Noble Little MD, Samuel D. MD ~ THIS REPORT FOR: //name// CC: Portillo Little DATE OF SERVICE: 05/27/2020 CHIEF COMPLAINT/HISTORY OF PRESENT ILLNESS: Follow up wound to right dorsal foot and left BKA stump. She is on parenteral ampicillin and ceftriaxone. Polymicrobial soft tissue infection with dry gangrene of the right dorsal lateral foot and fifth toe. PHYSICAL EXAMINATION: EXTREMITIES: Brown/black eschar to the right dorsal lateral foot, encompassing the region over the distal third, fourth and fifth metatarsals. The tendons and subcutaneous tissue are dry with no viable tissue. The right fifth toe is purple/black with eschar and dry gangrene forming. There is no drainage, no fluctuance or crepitation. The surrounding skin margins have capillary refill roughly 1 second. The foot appears stable, in terms there is no advancing of the necrosis to the peripheral tissues. The left BKA stump has improving scabs. PLAN: I painted the dorsal foot wound with Betadine and dressed with Aquacel and covered with Aquacel Ag, ABD and Kerlix. I do not recommend formal surgical debridement at this point because the areas is nonviable. I think it is best to keep the area dry and clean and painted with Betadine and allowed the tissues to continue to demarcate. Debridement of the wound would cause more inflammation and likely enlargement of the existing wound to the adjacent tissues. <ELECTRONICALLY SIGNED> By: Brian Francis DPM 05/30/20 1310 0945 [id number] Francis DPM /nt
--- NOTE | 2020-05-30 13:10 | CON ---
[facility] [address] [place] [address] CONSULTATION Name: CHARLENECHRISS Cynthia Room: [address] IN M.R.#: [id number] Admission: 05/14/20 Attend Phys: Portillo Lakhani MD Discharge: 05/28/20 Date of : 58 Report #: [id number] THIS REPORT FOR: //name// cc: Noble Little MD, Samuel D. MD ~ THIS REPORT FOR: //name// CC: Portillo Little DATE OF SERVICE: 05/25/2020 CHIEF COMPLAINT: Followup of right dorsal foot wound and wounds to the left distal BKA site. HISTORY OF PRESENT ILLNESS: She underwent arteriogram with angioplasty and stenting today. She is more alert, she says she feels better. She is on parenteral ceftriaxone, requires long-term venous access. Relates low-grade pain to the right foot. LABORATORY DATA: WBC 10.0, RBC 4.11, hemoglobin 10.1, hematocrit 32.1, and platelets 436. BUN 54, creatinine 1.7, and glucose 102. PHYSICAL EXAMINATION: The right foot is warmer to the touch with no pallor or cyanosis to the foot or periwound margin. The right fifth toe is black and necrotic with black eschar to the adjacent inferior wound. Roughly 70% of the wound is a mixture of granulation and slough with exposed extensor digitorum tendons. There is no fluctuance or crepitation noted. There is no visible bone or joint. The left BKA stump has 3 small superficial wounds with minimal inflammation substantially improved since admission. PLAN: The patient's right foot requires further debridement and removal of the fifth toe. I would like to wait 2 days to let the right foot wound tissue declare itself in light of her recent endovascular procedure. I can perform a bedside debridement under local anesthetic. <ELECTRONICALLY SIGNED> By: Brian Francis DPM 05/30/20 1310 1637 2056Daraquel Francis DPM /lynn
--- NOTE | 2020-05-30 13:10 | CON ---
[facility] [address] [place] [address] CONSULTATION Name: CHARLENECHRISS Cynthia Room: [address] IN M.R.#: [id number] Admission: 05/14/20 Attend Phys: Portillo Lakhani MD Discharge: 05/28/20 Date of : 58 Report #: [id number] THIS REPORT FOR: //name// cc: Noble Little MD, Samuel D. MD ~ THIS REPORT FOR: //name// CC: Portillo Little DATE OF SERVICE: 05/21/2020 CHIEF COMPLAINT: Bilateral lower extremity wounds with cellulitis. The patient had dressings changed today by the surgery staff. Polymicrobial growth with Proteus mirabilis, Enterococcus faecalis, Enterobacter cloacae, and Acinetobacter baumannii. She is on parenteral vancomycin and meropenem. She may require lower extremity revascularization, but pending renal improvement. She will require senior living placement, likely LTAC. She relates moderate pain to both distal extremities. LABORATORY DATA: Sodium 142, potassium 5.2, chloride 109, CO2 of 28, BUN 54, creatinine 1.5, and glucose 110. PHYSICAL EXAMINATION: Both lower extremity dressings are dry, clean, and intact with no visible bleed through. They were changed today. ASSESSMENT AND PLAN: I will inspect the patient's wounds tomorrow. She will require ongoing wound debridement, which can be performed at bedside or at the [facility]. I do not recommend overly aggressive debridement at this point as her vascular status is tenuous. <ELECTRONICALLY SIGNED> By: Brian Francis DPM 05/30/20 1310 [id number] 09Brian Francis DPM /nt
--- NOTE | 2020-05-30 13:10 | CON ---
[facility] [address] [place] [address] CONSULTATION Name: CHARLENECHRISS Cynthia Room: [address] IN M.R.#: [id number] Admission: 05/14/20 Attend Phys: Portillo Lakhani MD Discharge: 05/28/20 Date of : 58 Report #: [id number] THIS REPORT FOR: //name// cc: Noble Little MD, Samuel D. MD ~ THIS REPORT FOR: //name// CC: Portillo Little DATE OF SERVICE: 05/19/2020 CHIEF COMPLAINT/HISTORY OF PRESENT ILLNESS: Followup of bilateral lower extremity wounds with cellulitis, complicated by type 2 diabetes mellitus and PAD. She had polymicrobial growth, currently on cefepime. Her blood glucose was 129 this morning and 180 before lunch. No new labs for review. PHYSICAL EXAMINATION: Decreased inflammation to the right dorsal foot surrounding the dorsal foot wound. The wound bed is mostly pale slough with scant areas of granulation. The extensor tendons to the third and fourth toes are visible, no visible bone or joint. There is slight undermining roughly 2 mm around the wound periphery with no tunneling, no fluctuance/crepitation. She has multiple dry eschars to the right distal toes and medial calf. There is no pallor/cyanosis or signs of acute vascular embarrassment. Toenails are dystrophic with no paronychia. The bandage to the left leg remains intact with no visible drainage. IMPRESSION: 1. Diabetic foot ulceration, right dorsal lateral foot with deep tissue infection/cellulitis. 2. Wounds, multiple eschars to the left distal below-knee amputation stump. PLAN: I do not anticipate any further surgical debridement at this time. Awaiting renal improvement for possible aortogram by Vascular. Today, I cleansed the wounds and applied topical Aquacel Ag to the dorsal foot wound and paint to the remaining eschars with Betadine. ABDs and Kerlix were applied to the foot and lower leg. I will change the patient's bandages tomorrow. <ELECTRONICALLY SIGNED> By: Brian Francis DPM 05/30/20 1310 1155 1237Daraquel Francis DPM /nt
--- NOTE | 2020-05-30 13:10 | CON ---
[facility] [address] [place] [address] CONSULTATION Name: CHARLENECHRISS Cynthia Room: [address] IN M.R.#: [id number] Admission: 05/14/20 Attend Phys: Portillo Lakhani MD Discharge: 05/28/20 Date of : 58 Report #: [id number] THIS REPORT FOR: //name// cc: Noble Little MD, Samuel D. MD ~ THIS REPORT FOR: //name// CC: Portillo Little DATE OF SERVICE: 05/23/2020 CHIEF COMPLAINT: Followup of ulceration with soft tissue infection, right dorsal foot and left distal BKA stump. She is on parenteral ceftriaxone for polymicrobial infection, awaiting discharge [facility]. Vascular service has evaluated and followed the patient as well. She has ABIs 0.53 on the right. I debrided the right dorsal foot wound last week. LABORATORY DATA: WBC 11.8, RBC 4.19, hemoglobin 10.4, hematocrit 33.1, platelets 442. ESR 32. BUN 51, creatinine 1.6, glucose 170. PHYSICAL EXAMINATION: Decreased inflammation of the right dorsal lateral foot wound. The wound has no healthy tissue and has a black eschar to the inferior 50% and the superior aspect has a dry yellow eschar forming. There is exposed tendons to the toes with no visible bone. No fluctuance or crepitation. The wound has not appeared to enlarge during her hospital stay. She has dopplerable DP and PT pulses to the right lower extremity. The left distal BKA stump has less inflammation, and the superficial wounds have scabbed over. IMPRESSION: Deep tissue infection with ulceration, right distal foot, wounds, left distal BKA, type 2 diabetes mellitus with PAD, renal insufficiency, morbid obesity, debility. PLAN: I do not recommend any surgical debridement at this point as her arterial supply is compromised to the extremity. I think it is reasonable to let the wound to demarcate and form an eschar and keep it dry and clean. There does not appear to be progression of the right dorsal foot wound in terms of size. She may require revascularization at some point. The left BKA stump is stable and improving. Both wounds were cleansed, dried and dressed with Xeroform and the right foot was covered with ABDs and Kerlix gauze. A bordered foam was placed to the left BKA stump wounds. <ELECTRONICALLY SIGNED> By: Brian Francis DPM 05/30/20 1310 1545 [id number] Francis DPM /nt
== END 2020-05-28 16:44 | DRG 463 ==
LOC: M.ERS 21:56 → M.ICU 05-14 00:17 → M.TBA-ER 05-14 00:17 → M.ICU 05-14 02:06 → M.ORTHSURG 05-18 21:05
PROVIDERS: Emergency Medicine; Internal Medicine; Surgery; ADMIT Internal Medicine; ATTEND Internal Medicine
PROC: 5A09357 Assistance with Respiratory Ventilation, Less than 24 Consecutive Hours, Continuous Positive Airway Pressure (ICD-10-PCS; principal; 2020-05-17)
PROC: 0JBQ0ZZ Excision of Right Foot Subcutaneous Tissue and Fascia, Open Approach (ICD-10-PCS; principal; 2020-05-17)
PROC: 5A09357 Assistance with Respiratory Ventilation, Less than 24 Consecutive Hours, Continuous Positive Airway Pressure (ICD-10-PCS; 2020-05-18)
PROC: B41D1ZZ Fluoroscopy of Aorta and Bilateral Lower Extremity Arteries using Low Osmolar Contrast (ICD-10-PCS; 2020-05-25)
PROC: 047K3DZ Dilation of Right Femoral Artery with Intraluminal Device, Percutaneous Approach (ICD-10-PCS; 2020-05-25)
PROC: B5181ZA Fluoroscopy of Superior Vena Cava using Low Osmolar Contrast, Guidance (ICD-10-PCS; 2020-05-28)
PROC: 0JH63XZ Insertion of Tunneled Vascular Access Device into Chest Subcutaneous Tissue and Fascia, Percutaneous Approach (ICD-10-PCS; 2020-05-28)
PROC: 02HV33Z Insertion of Infusion Device into Superior Vena Cava, Percutaneous Approach (ICD-10-PCS; 2020-05-28)
PROC: B548ZZA Ultrasonography of Superior Vena Cava, Guidance (ICD-10-PCS; 2020-05-28)
DX: T87.89 Other complications of amputation stump (principal); R65.21 Severe sepsis with septic shock; A41.9 Sepsis, unspecified organism; J69.0 Pneumonitis due to inhalation of food and vomit; J91.8 Pleural effusion in other conditions classified elsewhere; N39.0 Urinary tract infection, site not specified; Z16.12 Extended spectrum beta lactamase (ESBL) resistance; I13.0 Hypertensive heart and chronic kidney disease with heart failure and stage 1 through stage 4 chronic kidney disease, or unspecified chronic kidney disease; I50.22 Chronic systolic (congestive) heart failure; L03.116 Cellulitis of left lower limb; L03.115 Cellulitis of right lower limb; Z68.43 Body mass index [BMI] 50.0-59.9, adult; J98.11 Atelectasis; E11.65 Type 2 diabetes mellitus with hyperglycemia; E11.22 Type 2 diabetes mellitus with diabetic chronic kidney disease; E11.40 Type 2 diabetes mellitus with diabetic neuropathy, unspecified; N18.3 Chronic kidney disease, stage 3 (moderate); E11.51 Type 2 diabetes mellitus with diabetic peripheral angiopathy without gangrene; E11.21 Type 2 diabetes mellitus with diabetic nephropathy; I87.8 Other specified disorders of veins; L30.9 Dermatitis, unspecified; G47.33 Obstructive sleep apnea (adult) (pediatric); I25.10 Atherosclerotic heart disease of native coronary artery without angina pectoris; E87.5 Hyperkalemia; E78.5 Hyperlipidemia, unspecified; F32.9 Major depressive disorder, single episode, unspecified; L97.519 Non-pressure chronic ulcer of other part of right foot with unspecified severity; E66.01 Morbid (severe) obesity due to excess calories; E11.628 Type 2 diabetes mellitus with other skin complications; E11.621 Type 2 diabetes mellitus with foot ulcer; B96.4 Proteus (mirabilis) (morganii) as the cause of diseases classified elsewhere; B95.2 Enterococcus as the cause of diseases classified elsewhere; B96.89 Other specified bacterial agents as the cause of diseases classified elsewhere; E11.319 Type 2 diabetes mellitus with unspecified diabetic retinopathy without macular edema; I70.203 Unspecified atherosclerosis of native arteries of extremities, bilateral legs; J43.9 Emphysema, unspecified; M79.3 Panniculitis, unspecified; Y83.5 Amputation of limb(s) as the cause of abnormal reaction of the patient, or of later complication, without mention of misadventure at the time of the procedure; L98.499 Non-pressure chronic ulcer of skin of other sites with unspecified severity; Z20.828 Contact with and (suspected) exposure to other viral communicable diseases; Z87.891 Personal history of nicotine dependence; Y92.89 Other specified places as the place of occurrence of the external cause; Z79.899 Other long term (current) drug therapy; Z89.612 Acquired absence of left leg above knee; Z79.82 Long term (current) use of aspirin; Z79.01 Long term (current) use of anticoagulants; Z79.84 Long term (current) use of oral hypoglycemic drugs; Z99.81 Dependence on supplemental oxygen

== ENCOUNTER 2020-05-28 17:23 | Inpatient (IN) | payer OTHER ==
[~2020-05-28] VITALS: Ht 148.1 cm; Wt 147.9 kg
[~2020-05-28 17:23] MED LIST changes: +ENOXAPARIN40 MG/0.1 SUBQ; +LIDOPATCH1 EACH TOP; +LIPITOR 40 MG T40 M1 PO; +NYAMYC15 GM TOP; +PAIN RELIEVER500 MG PO; +TRAMADOL 50 MG50 MG PO
[2020-05-28 17:24] VITALS: BP 103/41
[2020-05-28 17:56] LABS: URINE BILIRUBIN NEGATIVE (Negative); URINE BLOOD 2+ (Negative); URINE CLARITY CLOUDY; URINE COLOR YELLOW; URINE GLUCOSE-RANDOM NEGATIVE (Negative); URINE KETONES NEGATIVE (Negative); URINE LEUKOCYTES-REFLEX 3+ (Negative); URINE NITRITE-REFLEX NEGATIVE (Negative); URINE PROTEIN 1+ (Negative); URINE SPECIFIC GRAVITY 1.025 (1.005-1.030); URINE UROBILINOGEN 0.2 E.U./dl (0.2-1.0)
[2020-05-28 17:57] LABS: SQUAMOUS 0-3 Few /LPF (0-3)
[2020-05-28 17:58] LABS: AMORPHOUS URATES Few /LPF (None Seen); BACTERIA-REFLEX >30 Many /HPF (None Seen); CASTS None Seen /LPF (None Seen); URINE RBC 3-10 Few /HPF (0-2); URINE WBC-REFLEX >25 Many /HPF (0-5); YEAST-REFLEX Present (None Seen)
[2020-05-28 18:05] LABS: BE 3.4 mmol/L (-2 to +3); pH 7.339 (7.340-7.450)
[2020-05-28 18:07] LABS: PCO2 57.4 mmHg (35.0-45.0); PO2 134.5 mmHg (75.0-100.0)
[2020-05-28 18:27] LABS: HEMATOCRIT 31.5 % (37.0-47.0); HEMOGLOBIN 9.5 gm/dL (12.0-15.0); MCH 23.8 pg (26.0-34.0); MCHC 30.2 g/dL (28.0-37.0); MCV 78.8 fL (80.0-100.0); MPV 8.2 fl. (7.2-11.1); NUCLEATED RBCS 0 /100WBC; PLATELET COUNT* 463 thou/uL (150-400); RDW-CV 19.8 % (10.5-14.5); WBC 11.3 thou/uL (4.0-11.0)
[2020-05-28 18:31] LABS: CALCIUM 7.8 mg/dL (8.5-10.1); CREATININE 2.1 mg/dL (0.6-1.3); POTASSIUM 5.6 mmol/L (3.5-5.1)
[2020-05-28 18:32] LABS: INR 1.3; PROTIME 13.6 Seconds (9.20-11.50)
[2020-05-28 18:35] LABS: ALBUMIN 2.2 g/dL (3.4-5.0); MAGNESIUM 2.2 mg/dL (1.8-2.4); TOTAL BILIRUBIN 0.5 mg/dL (<0.1-1.0); TOTAL PROTEIN 6.8 g/dL (6.4-8.2)
[2020-05-28 18:58] LABS: ABSOLUTE LYMPHOCYTES 0.8 thou/uL (0.8-5.3); ABSOLUTE MONOCYTES 0.2 thou/uL (0.0-1.2); ABSOLUTE NEUTROPHILS 10.3 thou/uL (1.6-8.1); ANISOCYTOSIS 2+; HYPOCHROMASIA 1+; PLATELET ESTIMATE INCREASED; POIKILOCYTOSIS 1+; POLYCHROMASIA Occasional
--- NOTE | 2020-05-28 20:30 | NUR ---
RECEIVED REPORT FROM ED RN. PT TRANSFERRED TO 203 AND MOVED TO BARIATRIC BED IN STABLE CONDITION.
[2020-05-28 20:43] VITALS: BP 107/66
[2020-05-28 21:00] VITALS: BP 101/72
[2020-05-29] VITALS: BP 106/67
[2020-05-29 04:00] VITALS: BP 114/69; BP 96/54
--- NOTE | 2020-05-29 06:22 | NUR ---
I CONCUR WITH MYLES WALLS'S ADMISSION. PICTURES OF WOUNDS TAKEN. PT REPOSTIONED THROUGH SHIFT. NO REPORTS OF PAIN. WILL CONTINUE WITH PLAN OF CARE.
[2020-05-29 07:43] LABS: CREATININE 1.9 mg/dL (0.6-1.3); MAGNESIUM 2.2 mg/dL (1.8-2.4); POTASSIUM 5.2 mmol/L (3.5-5.1)
[2020-05-29 07:50] VITALS: BP 93/62
--- NOTE | 2020-05-29 09:41 | EKG ---
[place] [address] ELECTROCARDIOGRAM REPORT Name: CHRISS CHANG Room: [address] ADM IN .R.#: [id number] Admission: 05/28/20 Attend Phys: Jessica De, Discharge: Date of : 58 Date of Service: 05/28/20 1734 Report #: [id number] THIS REPORT FOR: //name// [facility] ED Test Date: 2020-05-28 Test Time: 17:34:25 Pat Name: CHRISS CHANG Department: Room: [facility] Gender: F Freight Booker: MEDARDO : 1960 Requested By: Staci Perrin Order Number: [id number] MD: Torres Deluca Measurements Intervals [place] Rate: 93 P: LA: QRS: -32 QRSD: 138 T: 164 QT: 385 QTc: 479 Interpretive Statements Sinus rhythm left bundle branch block Compared to ECG 05/13/2020 22:31:34 No significant changes noted Electronically Signed On 05-29-2020 9:41:20 CDT by Torres Deluca [email or web address] <ELECTRONICALLY SIGNED> By: Torres Deluac MD, FACC 05/29/20 0941 1734 1734 Torres Deluca MD, [facility] /EPI
[2020-05-29 12:00] VITALS: BP 90/49
--- NOTE | 2020-05-29 13:09 | NUR ---
Pt was discharged from this hospital yesterday to [facility], when Pt arrived at SNF, SNF reported that Pt had a low BP so they sent her back to the hospital. TE spoke with Giuliana from [facility], they will consider Pt for skilled again, but will need a new referral and also would like to do an onsite visit prior to dc. TE confirmed with [facility] [employer] that MP can complete an onsite. Pt normally resides at home with her . completes IADLS and assists with ADLs. Pt has a wc. Pt has a prothesis. Therapies ordered. Plan SNF at dc. Following.
[2020-05-29 13:51] LABS: URINE BILIRUBIN NEGATIVE (Negative); URINE BLOOD 3+ (Negative); URINE CLARITY CLEAR; URINE COLOR YELLOW; URINE GLUCOSE-RANDOM NEGATIVE (Negative); URINE KETONES NEGATIVE (Negative); URINE LEUKOCYTES-REFLEX 1+ (Negative); URINE NITRITE-REFLEX NEGATIVE (Negative); URINE PROTEIN NEGATIVE (Negative); URINE UROBILINOGEN 0.2 E.U./dl (0.2-1.0)
[2020-05-29 14:04] LABS: BACTERIA-REFLEX 1-9 Few /HPF (None Seen); CASTS None Seen /LPF (None Seen); MUCUS None Seen strn/LPF (None Seen); SQUAMOUS 4-10 Moderate /LPF (0-3); URINE RBC 0-2 Rare /HPF (0-2); URINE WBC-REFLEX 6-15 Few /HPF (0-5)
[2020-05-29 14:05] LABS: AMORPHOUS URATES Moderate /LPF (None Seen)
[2020-05-29 15:20] VITALS: BP 106/71
--- NOTE | 2020-05-29 18:25 | NUR ---
RECIEVED REPORT AROUND 729. ASSUMED CARE. VS AND ASSESSMENT CHARTED. MEDICATION PER DEC. PATIENT HOOKED TO MONITOR. LATER CHANGED TO MED/SURG STATUS. AND D/C HEART MONITOR. PT REPORTED NO PAIN. FAMILY CAME IN TO VISIT. QUESTIONS AND CONCERNS WERE ANSWERED. CALL LIGHT WITHIN REACH. PT TO BE TRANSFERRED TO [facility]. REPORT GIVEN TO KAVITA COLLINS. PT TRANSFERRED AT 1828.
--- NOTE | 2020-05-29 19:52 | NUR ---
PT RECIEVED FROM TELE IN ROOM 210. ALERT AND ORIENTED X4 BUT FORGETFUL AND CONFUSED. DENIES PAIN AND SOB. CALL LIGHT WITHIN REACH AND BED IN LOW POSITION. BORRERO IN PLACE AND DRAINING.
--- NOTE | 2020-05-29 19:57 | NUR ---
PT RECIEVED FROM TELE IN ROOM 110. ALERT AND ORIENTED X4 BUT FORGETFUL. DENIES PAIN AND SOB. CALL LIGHT WITHIN REACH AND BED IN LOW POSITION. HOURLY ROUNDING DONE FOR PT SAFETY.
[2020-05-29 20:00] VITALS: BP 109/59
[2020-05-30] VITALS: BP 95/44
[2020-05-30 03:59] VITALS: BP 98/54
[2020-05-30 07:37] LABS: HEMOGLOBIN 9.1 gm/dL (12.0-15.0); MCH 24.4 pg (26.0-34.0); MCHC 31.3 g/dL (28.0-37.0); MCV 78.1 fL (80.0-100.0); MPV 8.3 fl. (7.2-11.1); RBC 3.71 mil/uL (4.20-5.00); RDW-CV 20.2 % (10.5-14.5)
[2020-05-30 07:48] LABS: CALCIUM 7.6 mg/dL (8.5-10.1); CREATININE 2.1 mg/dL (0.6-1.3); MAGNESIUM 2.2 mg/dL (1.8-2.4); POTASSIUM 5.2 mmol/L (3.5-5.1)
[2020-05-30 07:59] VITALS: BP 121/64
[2020-05-30 16:00] VITALS: BP 130/75
--- NOTE | 2020-05-30 17:28 | NUR ---
PT UP TO CHAIR TODAY. BORRERO TO [facility]. 2L FR. O2 2L NC. SLOW TO PROGRESS TOWARDS GOALS.
--- NOTE | 2020-05-31 03:51 | NUR ---
PT AO X4 WITH SOME CONFUSION,(NIGHT VS DAY), 2+ PITTING EDEMA TO UPPER EXTREMITY AND 1+ TO BLE. ANTIBIOTICS GIVEN WITHOUT ISSUE THROUGH PICC LINE, PT IS UPBEAT AND OPTIMISTIC ABOUT RETURNING TO SKILLED, PT STILL HAS MULTIPLE WOUNDS WITH SOME OOZING, TURNING Q2 HR FOR SKIN PROTECTION, CALL LIGHT WITHIN REACH, PT ON BERIATRIC BED. CONTINUE FLUID RESTRICTION AND PT MONITORING
[2020-05-31 06:28] LABS: CALCIUM 7.8 mg/dL (8.5-10.1); CREATININE 2.2 mg/dL (0.6-1.3); MAGNESIUM 2.1 mg/dL (1.8-2.4); POTASSIUM 5.1 mmol/L (3.5-5.1)
[2020-05-31 07:45] VITALS: BP 138/114
--- NOTE | 2020-05-31 14:18 | NUR ---
WOUND NURSE: PATIENT SEEN FOR WOUND ASSESSMENT. PATIENT IS LEFT BKA AND HAS RANDOM SHALLOW BLACKENED ESCHARS PRESENT AND DISTALE APECT WITH PARTIAL THICKNESS WOUNDS AND SEROUS DRAINAGE. THERE IS NO PERIWOUND REDNESS, WARMTH, OR INDURATION. CLEANSED WITH WOUND CLEANSER APPLIED XEROFORM GAUZE UNDER 4X4'S, THEN WRAPPED WITH KERLEX AND SECURED WITH TAPE. RIGHT FOOT WITH EXPOSED TENDON'S AND BLACKENED ESCHAR AND BLACKED 5TH DIGIT. AFFECTED AREA CLEANSED WITH WOUND CLEANSER, APPLIED XEROFORM GAUZE UNDER 4X4'S UNDER ABD, WRAPPED WITH KERLEX AND SECURED WITH TAPE. STABLE BLACKENED ESCHAR ON RIGHT MEDIAL MALLEOLUS. TREATED WITH XEROFORM GAUZE UNDER 4X4'S UNDER KERLEX, SECURED WITH TAPE. RIGHT BUTTOCK PARTIAL THICKNESS WOUND PRESENTS WITH PINK NONGRANULATING TISSUE AND SEROUS DRAINAGE. CLEANSED WITH WOUND CLEANSER AND GAUZE APPLIED BORDERED FOAM DRESSING. RIGHT CALF STABLE BLACKENED ESCHAR LEFT OPEN TO AIR.
--- NOTE | 2020-05-31 14:21 | NUR ---
PER YOLANDA W/ADRIAN BLACK, ADMISSION ARE ON HOLD AT A MINIMUM 2 DAYS D/T COVID POSITIVES IN FACILITY. F/U SHERIN AND YOLANDA SHOULD KNOW MORE.
[2020-05-31 16:00] VITALS: BP 120/71
--- NOTE | 2020-05-31 18:37 | NUR ---
PATIENT RESTING IN BED. PATIENT IS UP VIA TACO LIFT. WAS UP TO CHAIR THIS MORNING. PATIENT HAS GOOD APPETITE. PATIENT SEEN BY WOUND CARE NURSE THIS AFTERNOON. PATIENT WORKED WITH THERAPY. PATIENT HOPING TO GO TO [place] TOMORROW. PATIENT DENIES ANY NEEDS AT THIS TIME. CALL LIGHT WITHIN REACH.
[2020-05-31 20:12] VITALS: BP 113/59
--- NOTE | 2020-06-01 06:55 | NUR ---
PT A&OX4, ON ROOM AIR - CPAP WHILE SLEEPING, VSS, BORRERO IN PLACE, PAIN MED REQUESTED AND GIVEN ORDERED. PT TURNED Q2HR. HOURLY ROUNDINGS COMPLETE. WILL CONTINUE TO MONITOR.
[2020-06-01 08:00] VITALS: BP 101/59
[2020-06-01 10:08] LABS: ABSOLUTE BASOPHILS 0.1 thou/uL (0.0-0.2); ABSOLUTE EOSINOPHILS 0.2 thou/uL (0.0-0.7); ABSOLUTE LYMPHOCYTES 1.3 thou/uL (0.8-5.3); ABSOLUTE MONOCYTES 0.5 thou/uL (0.0-1.2); ABSOLUTE NEUTROPHILS 6.1 thou/uL (1.6-8.1); BASOPHILS 0.7 %; EOSINOPHILS 2.6 %; HEMATOCRIT 31.3 % (37.0-47.0); HEMOGLOBIN 9.8 gm/dL (12.0-15.0); LYMPHOCYTES 15.9 %; MCH 24.4 pg (26.0-34.0); MCHC 31.1 g/dL (28.0-37.0); MCV 78.3 fL (80.0-100.0); MONOCYTES 6.2 %; MPV 8.3 fl. (7.2-11.1); NUCLEATED RBCS 0 /100WBC; PLATELET COUNT* 384 thou/uL (150-400); POLYS 74.6 %; RDW-CV 20.7 % (10.5-14.5); WBC 8.2 thou/uL (4.0-11.0)
[2020-06-01 10:23] LABS: ALBUMIN 2.3 g/dL (3.4-5.0); CALCIUM 8.3 mg/dL (8.5-10.1); CREATININE 2.2 mg/dL (0.6-1.3); POTASSIUM 5.5 mmol/L (3.5-5.1); TOTAL BILIRUBIN 0.7 mg/dL (<0.1-1.0); TOTAL PROTEIN 6.5 g/dL (6.4-8.2)
[2020-06-01 11:03] LABS: ANISOCYTOSIS 1+; HYPOCHROMASIA 1+; OVALOCYTES 1+; PLATELET ESTIMATE ADEQUATE
--- NOTE | 2020-06-01 17:21 | NUR ---
CM SPOKE TO ADMISSIONS AT [facility] AND THEY INFORM THAT THEY ARE UNABLE TO ACCEPT ANY PT'S AT THIS TIME DUE TO POSITIVE COVID WITH STAFF. CM FOLLOWED-UP ON REFERRALS SENT TO: [facility] (DECLINED), [facility] (NO BEDS AVAILABLE), [facility] (NO BED[facility] AVAILABLE), [facility] (DECLIN[facility]). CM ALSO SENT REFERRALS TO [facility], [facility], AND [facility]. CM AWAITING RETURN CALL TO DISCUSS ABILITY TO ACCEPT THE PT. PT WILL NEED NEW INSURANCE AUTH IF [facility] WILL CONSIDER THE PT ON THURSDAY. CM WILL REMAIN AVAILABLE TO ASSIST AND FOLLOW NEEDED.
--- NOTE | 2020-06-01 17:55 | NUR ---
PATIENT RESTING IN BED. PATIENT DISCHARGE PENDING INSURANCE AND ACCEPTANCE. PATIENT WAS HOPING TO DISCHARGE TODAY. PATIENT SEEN BY DR ALDANA THIS AFTERNOON AND DRESSING CHANGED TO FOOT. PATIENT HAS FAIR APPETITE, GLUCERNA PROVIDED. PATIENT DENIES ANY PAIN. PATIENT DENIES ANY NEEDS AT THIS TIME. CALL LIGHT WITHIN REACH.
[2020-06-01 19:30] VITALS: BP 108/64
--- NOTE | 2020-06-02 07:05 | NUR ---
PT A&OX4, ON ROOM AIR - CPAP WHILE SLEEPING, ADAIR ZIEGLER IN PLACE. PT SLEPT WELL, NO COMPLAINTS THIS SHIFT. PT TURNED Q2H. HOURLY ROUNDINGS COMPLETE. WILL CONTINUE TO MONITOR.
[2020-06-02 08:35] VITALS: BP 117/72
[2020-06-02 13:30] LABS: ABSOLUTE BASOPHILS 0.1 thou/uL (0.0-0.2); ABSOLUTE EOSINOPHILS 0.2 thou/uL (0.0-0.7); ABSOLUTE LYMPHOCYTES 1.6 thou/uL (0.8-5.3); ABSOLUTE MONOCYTES 0.4 thou/uL (0.0-1.2); ABSOLUTE NEUTROPHILS 4.5 thou/uL (1.6-8.1); BASOPHILS 1.1 %; EOSINOPHILS 2.7 %; HEMATOCRIT 30.1 % (37.0-47.0); HEMOGLOBIN 9.6 gm/dL (12.0-15.0); LYMPHOCYTES 23.1 %; MCHC 31.8 g/dL (28.0-37.0); MCV 78.5 fL (80.0-100.0); MONOCYTES 6.5 %; MPV 8.5 fl. (7.2-11.1); NUCLEATED RBCS 0 /100WBC; PLATELET COUNT* 382 thou/uL (150-400); POLYS 66.6 %; RBC 3.84 mil/uL (4.20-5.00); WBC 6.8 thou/uL (4.0-11.0)
[2020-06-02 14:48] LABS: ESR (SEDRATE) 10 mm/hr (0-30)
[2020-06-02 15:53] VITALS: BP 109/69
--- NOTE | 2020-06-02 19:01 | NUR ---
pt AOx2-3 forgetful at times. pt is total care, ailyn lift to transfer. Pt is on low air loss mattress, turned q2hr. Pt is on carb control diet and tolerates well, receiving sched insulin at meals. No complaint of pain this shift. hourly rounding complete will continue to monitor
[2020-06-02 19:45] VITALS: BP 104/69
--- NOTE | 2020-06-03 05:54 | NUR ---
Alert and oriented x 4 but forgetful and at times is not nice. She does have wounds all over. She was incontinent of stool last evening and optifoam dressings were changed to open areas on her coccyx and rt buttocks. She is on a speciality bed and has been repositioned. She has slept well.
[2020-06-03 08:30] VITALS: BP 101/61
--- NOTE | 2020-06-03 17:53 | NUR ---
Pt AOx3, forgetful. Pt had bedside debridement by DR Francis today, dressing was saturated and changed this afternoon, new pressure dressing applied. Pt tolerated well with c/o minimal pain. Pt tolerating antibiotics. Pt is up with ailyn lift, received BB today. No c/o of pain. hourly rounding complete. Will continue to monitor
[2020-06-03 20:30] VITALS: BP 104/55
--- NOTE | 2020-06-04 06:50 | NUR ---
Oriented x 4 but forgetful. She has been quiet this shift. Dressings on all her wounds are dry and intact. Vitals are stable. She denies pain. She has refused turns this shift. She has slept well.
[2020-06-04 08:21] VITALS: BP 108/66
[2020-06-04] MEDS ORDERED: FLUCONAZOLE 10100 MG PO (09:07)
[2020-06-04] MEDS ORDERED: FLORASTOR250 MG PO (09:07)
[2020-06-04] MEDS ORDERED: AMOX TR-K CLV1 EAC3 PO (09:07)
[2020-06-04] MEDS ORDERED: HUMALOG100 UNIT/1 SUBQ (09:15)
--- NOTE | 2020-06-04 13:09 | NUR ---
CM CONTINUES TO ATTEMPT TO FIND SNF PLACEMENT FOR THE PT. CM SPOKE TO ADMISSSIONS AT [facility] 'CLOSED TO ADMISSIONS', [facility] 'NO BEDS AVAILABLE', [facility] 'NO BEDS AVAILABLE'. CM ALSO CALLED AND SENT REFERRAL TO [facility] 'DECLINED PT DUE TO ACUITY AND WT BEARING STATUS'. CM AWAITING A RETURN CALL FROM REFERRALS CALLLED AND SENT TO [facility], [facility], AND [facility]. CM INFORMED NURSING AND P.T. THAT THE PT WILL NEED TO BE SEEN BY PT/OT ODALYS THE OT HAS NOT BEEN SEEN BY EITHER SINCE 05/01/20M AND THESE NOTES ARE VITAL TO GETTING SNF PLACEMENT. CM WILL REMAIN AVAILABLE TO ASSIST AND FOLLOW NEEDED.
[2020-06-04 15:28] LABS: ALBUMIN 2.2 g/dL (3.4-5.0); CALCIUM 7.9 mg/dL (8.5-10.1); CREATININE 2.3 mg/dL (0.6-1.3); POTASSIUM 4.8 mmol/L (3.5-5.1); TOTAL BILIRUBIN 0.5 mg/dL (<0.1-1.0); TOTAL PROTEIN 6.2 g/dL (6.4-8.2)
[2020-06-04 16:28] VITALS: BP 102/52
--- NOTE | 2020-06-04 17:55 | NUR ---
A&OX 4. PINK, WARM AND DRYING. DRESSINGS ON RIGHT FOOT AND LEFT STUMP AND LEFT BREAST DRY AND INTACT. CENTRAL LINE IN LEFT CHEST PATENT AND SALINE LOCKED OFF. BORRERO CATH INTACT AND PATENT. NEW STAT LOCK PUT ON BORRERO TO SECURE IT TO PT'S LEFT LEG. PT HAD 2 SMALL SOFT STOOLS TODAY. SIGNIFICANT OTHER IN ROOM WITH HER. PT ALSO DRINKING GLUCERNA TO HELP DIET INTAKE. WILL CONTINUE TO MONITOR.
[2020-06-04 19:28] VITALS: BP 97/56
--- NOTE | 2020-06-05 04:36 | NUR ---
PT A&OX4, ON ROOM AIR, ADAIR ZIEGLER IN PLACE, PT TURNED Q2H EXCEPT WHEN REFUSED. PT HAD NO COMPLAINTS THIS SHIFT. PT SLEEPING WELL. HOURLY ROUNDINGS COMPLETE. WILL CONTINUE TO MONITOR.
[2020-06-05 07:30] VITALS: BP 110/66
--- NOTE | 2020-06-05 13:27 | NUR ---
CM CONTINUES TO ATTEMPT TO FIND SNF PLACEMENT FOR PT. CM RECEIVED CALLBACK FROM [facility] AND BOTH FACILITIES DECLINED. [facility] 'NO LONGER CONTRACT WITH [facility]', [facility] 'UNABLE TO MEET THE PT'S NEEDS', [facility] & [facility] 'PT DENIED DUE TO HIGH NEEDS'. CM CALLED AND SENT REFERRALS TO [facility], [facility] ('NO BED AVAILABLE UNTIL NEXT WEEK'), [facility], [facility], [facility], [facility], AND [facility]. CM AWAITING A RETURN CALL FROM THE LISTED FACILITIES. CM ALSO SPOKE TO THE PT AND SPOUSE TO INFORM THAT WE HAVE EXAUHSTED THE POSSIBILITY OF SNF LOCALLY AND MUST SEARCH FOR PLACEMENT FURTHER OUT AND WILL ALSO NEED TO COMPLETE THE MEDICAID MATI WITH THE PT IT APPEARS THAT SHE MAY SERVICES BEYOND SKILLED THERAPY. PT AND SPOUSE IN AGREEMENT. CM WILL REMAIN AVAILABLE TO ASSIST AND FOLLOW NEEDED.
[2020-06-05 16:00] VITALS: BP 135/75
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
[2020-06-05 19:38] VITALS: BP 107/40
--- NOTE | 2020-06-06 05:05 | NUR ---
PT A&OX4, ON ROOM AIR, VSS, PT TURNED Q2H EXCEPT WHEN REFUSED, BORRERO IN PLACE, WOUNDS MONITORED. PT DENIES ANY PAIN. ASSESSMENTS AND HOURLY ROUNDINGS COMPLETE. WILL CONTINUE TO MONITOR.
[2020-06-06 08:30] VITALS: BP 110/72
--- NOTE | 2020-06-06 14:02 | NUR ---
Nutrition: reassessment. RD has been following pt. Ramone is ordered for Rt foot, Lt stump wounds. BG 144, alb 2.2, prealb 12.1. Pt likes Aldo blount as well. Apparently, working on insurance arrangements for discharge. Wt: [phone]#. No significant nutritional changes since last assessment. Mild risk.
--- NOTE | 2020-06-06 14:43 | CON ---
[address] [address] CONSULTATION Name: CHRISS CHANG Room: [address] IN M.R.#: [id number] Admission: 05/28/20 Attend Phys: Jessica De MD Discharge: Date of : 58 Report #: [id number] THIS REPORT FOR: //name// cc: Noble Little MD, Samuel D. MD ~ THIS REPORT FOR: //name// CC: Jessica Little DATE OF SERVICE: 06/03/2020 CHIEF COMPLAINT: Followup of a wound to the right dorsal lateral foot with deep tissue infection and gangrene of the fifth toe. She is currently on oral Augmentin 500 mg b.i.d. She has been afebrile with good appetite and minimal foot pain. Foot radiographs taken on 06/01 are negative for bone destruction with no evidence of underlying erosive changes indicative of osteomyelitis. She is awaiting custodial facility placement, likely tomorrow. LABORATORY DATA: WBC 6.8, RBC 3.84, hemoglobin 9.6, hematocrit 30.1, platelets 382. ESR 10. BUN 51, creatinine 2.2, glucose 89 and albumin 2.3. PHYSICAL EXAMINATION: Decreased inflammation to the right plantar foot along the medial arch. The dorsal foot wound is softer with yellow necrotic tissue and exposed tendons. The fifth toe was necrotic with dry gangrene. No juan manuel erythema to the dorsal foot wound. The foot is warm with no pallor/cyanosis or signs of acute vascular embarrassment. IMPRESSION: Deep tissue infection, right foot, no radiographic evidence of osteomyelitis, gangrene of right fifth toe. PLAN: I performed a subcutaneous tissue debridement of the right foot wound with a #10 scalpel and forceps. I excised all visible tendons as well as a yellow fibronecrotic tissue across the entire surface of the wound. Scant bleeding was achieved and stopped with direct pressure. No bone was visualized. I did not disarticulate the fifth toe, as it was not loose or supple at the MTP joint. The gangrene to the fifth toe encompassed mostly the dorsal and lateral aspect. It is unknown whether there is any viable tissue underneath that. The wound was cleansed and dressed with Xeroform, ABDs and Kerlix gauze. I will follow up with the patient in 9 days at [facility]. I prefer a conservative approach, although if patient requires more formal surgical debridement in the OR, certainly that can be performed in the future. <ELECTRONICALLY SIGNED> By: Brian Francis DPM 06/06/20 1443 [id number] Dduy Francis DPM /lynn
--- NOTE | 2020-06-06 14:43 | CON ---
[address] [address] CONSULTATION Name: CHRISS CHANG Room: [address] ADM IN M.R.#: [id number] Admission: 05/28/20 Attend Phys: Jessica De MD Discharge: Date of : 58 Report #: [id number] THIS REPORT FOR: //name// cc: Noble Little MD, Samuel D. MD ~ THIS REPORT FOR: //name// CC: Jessica Little DATE OF SERVICE: 06/01/2020 CHIEF COMPLAINT: Follow up of wound to the right dorsal lateral foot with deep tissue infection and cellulitis. She is on parenteral Zosyn, status post bedside debridement with subsequent eschar formation, possible transfer to senior care facility tomorrow. She had a recent right lower extremity angioplasty and stenting on 05/25. Awaiting long-term care placement. LABORATORY DATA: WBC 8.2, RBC 4.00, hemoglobin 9.8, hematocrit 31.3, platelets 384, BUN 51, creatinine 2.2, glucose 89, albumin 2.3. PHYSICAL EXAMINATION: Large brown eschar over the right dorsal lateral foot with full-thickness wound with exposed tendons. No visible bone. No fluctuance or crepitation. No cellulitis to the hiram-wound. She has some inflammation to the right plantar arch with black eschar to the plantar medial mid foot. Multiple eschars to the right pretibial region. No pallor/cyanosis or signs of acute vascular embarrassment. Right fifth toe was black with dry gangrene. IMPRESSION: Peripheral artery disease; diabetes mellitus; deep tissue infection, right foot. PLAN: The patient could benefit from some additional wound debridement as an outpatient. I feel a less aggressive approach is warranted given her vasculopathy, diabetes, and given she is nonambulatory. I will check with nursing regarding long-term care placement and coordinate followup outpatient wound care. <ELECTRONICALLY SIGNED> By: Brian Francis DPM 06/06/20 1443 [id number] Francis DPM /nt
[2020-06-06 16:13] VITALS: BP 110/72
[2020-06-06 16:28] VITALS: BP 107/59
--- NOTE | 2020-06-06 16:42 | NUR ---
CM RECEIVED A CALBACK FROM SERE[facility] WITH [facility] TO INFORM THAT THE PT HAS BEEN CLINICALLY ACCPETED AND THAT INSURANCE IS REQUESTING A [id number]. [id number] COMPLETED BY THE PHYSICIAN AND PT APPROVED FOR SNF PLACEMENT. [facility] REQUESTING COMPLETED MEDICAID MATI, [id number], AND DPOA. CM ASSISTED PT AND SPOUSE IN ARRANGING COMPLETION, AND COMPLETEING ALL OF THE REQUESTED PAPERWORK. [facility] ADMISSIONS ACCEPTS PT. TRANSPORTATION ARRANGED FOR 1800 WITH [facility]. PT, SPOUSE AND RN NOTIFIED OF D/C ARRANGEMENTS. ALL IN AGREEMENT. CM FAXED PT'S D/C ORDERS TO [facility]. CM WILL REMAIN AVAILABLE TO ASSIST AND FOLLOW NEEDED.
[2020-06-06 18:34] VITALS: BP 110/72
--- NOTE | 2020-06-06 18:35 | NUR ---
Pt AOx4. R Foot dressing changed by Dr Francis today and clean, dry, intact. Mepilex dressing changed to LLE and coccyx. Report given to staff at [facility]. Discharge instructions included in paperwork. Belongings sent with patient. Patient was in stable condition, adn tearful upon leaving. Reassurance provided. Voiced no other concerns.
== END 2020-06-06 18:38 | DRG 853 ==
LOC: M.ERS 17:23 → M.2W 18:50 → M.TBA-ER 18:50 → M.ORTHSURG 18:50 → M.2W 20:42 → M.ORTHSURG 05-29 18:34
PROVIDERS: Internal Medicine; Personal Emergency Response Attendant; ADMIT Internal Medicine; ATTEND Internal Medicine
PROC: 5A09357 Assistance with Respiratory Ventilation, Less than 24 Consecutive Hours, Continuous Positive Airway Pressure (ICD-10-PCS; 2020-05-30)
PROC: 5A09357 Assistance with Respiratory Ventilation, Less than 24 Consecutive Hours, Continuous Positive Airway Pressure (ICD-10-PCS; 2020-06-01)
PROC: 0LBV0ZZ Excision of Right Foot Tendon, Open Approach (ICD-10-PCS; principal; 2020-06-03)
DX: A41.9 Sepsis, unspecified organism (principal); G92 Toxic encephalopathy; J69.0 Pneumonitis due to inhalation of food and vomit; Z68.44 Body mass index [BMI] 60.0-69.9, adult; N39.0 Urinary tract infection, site not specified; I13.0 Hypertensive heart and chronic kidney disease with heart failure and stage 1 through stage 4 chronic kidney disease, or unspecified chronic kidney disease; Z16.12 Extended spectrum beta lactamase (ESBL) resistance; I96 Gangrene, not elsewhere classified; I50.42 Chronic combined systolic (congestive) and diastolic (congestive) heart failure; E11.52 Type 2 diabetes mellitus with diabetic peripheral angiopathy with gangrene; E11.40 Type 2 diabetes mellitus with diabetic neuropathy, unspecified; E11.319 Type 2 diabetes mellitus with unspecified diabetic retinopathy without macular edema; I25.10 Atherosclerotic heart disease of native coronary artery without angina pectoris; E11.21 Type 2 diabetes mellitus with diabetic nephropathy; E78.5 Hyperlipidemia, unspecified; I87.8 Other specified disorders of veins; G47.33 Obstructive sleep apnea (adult) (pediatric); I95.9 Hypotension, unspecified; E11.621 Type 2 diabetes mellitus with foot ulcer; E11.22 Type 2 diabetes mellitus with diabetic chronic kidney disease; N18.3 Chronic kidney disease, stage 3 (moderate); E11.65 Type 2 diabetes mellitus with hyperglycemia; L30.9 Dermatitis, unspecified; E87.5 Hyperkalemia; L84 Corns and callosities; L03.031 Cellulitis of right toe; L89.899 Pressure ulcer of other site, unspecified stage; Y83.8 Other surgical procedures as the cause of abnormal reaction of the patient, or of later complication, without mention of misadventure at the time of the procedure; J43.9 Emphysema, unspecified; E66.01 Morbid (severe) obesity due to excess calories; Z20.828 Contact with and (suspected) exposure to other viral communicable diseases; Z79.4 Long term (current) use of insulin; Z89.612 Acquired absence of left leg above knee; Z79.82 Long term (current) use of aspirin; Z79.899 Other long term (current) drug therapy; Z87.891 Personal history of nicotine dependence; Y92.89 Other specified places as the place of occurrence of the external cause